=== PATIENT | female | born 1945 | race Caucasian/White ===

== ENCOUNTER → 2016-04-22 | Outpatient (CLI) | payer OTHER ==
[~2016-04-22] MED LIST: ALDACTONE25 MG PO; ALTACE10 M1 PO; ALTACE10 MG PO; AMLODIPINE BESYL5 MG; ASA81BEC PO; ASPIRIN325; ATENOLOL 25 MG25 M1 PO; CENTRUM SILVER1 EAC4 PO; COUMADIN 5 MG TA5 M1 PO; FISH OIL 1,001000 M1 PO; FISH OIL 1,001000 M2 PO; IRON325 PO; LANOXIN 0.250.25 M1; LIPITOR20 MG PO; LOVENOX SQ; PACERONE 200 M200 MG PO; PRADAXA150 MG PO; SAVAYSA60 MG PO; SIMVASTATIN40 MG PO; TIKOSYN.25; VENTOLIN HFA 1818 GM INH
--- NOTE | ~2016-04-22 | S ---
[facility] [place] [address] SURGICAL PATH RPT PROCEDURE Name: DAVID SHINE Room #: REG [facility].#: [id number] Admission: 04/22/16 Date of : 41 Discharge: Report #: [id number] Path Case #: [id number] PATHOLOGY REPORT COLLECTION DATE: 04/22/2016 RECEIVED DATE: 04/22/2016 SUBMITTING PHYS: Dr. Octavio Nunn OTHER PHYS: Dr. Nakia Lazaro SPECIMEN(S) RECEIVED: A.Bx small bowel B.Gastritis * * * * * * * * * * * * FINAL DIAGNOSIS: A. "Bx small bowel", biopsy: - Small bowel / duodenal mucosa with mild reactive changes; no evidence of celiac sprue. B. "Gastritis", biopsy: - Gastric mucosa with mild reactive changes and mild chronic inflammation. - Negative H. pylori immunohistochemical stain (block B1); control reacted appropriately. (CLW:all; d/t: 04/26/2016) PATHOLOGIST: Angelina Garcia M.D. REPORT ELECTRONICALLY SIGNED BY: Angelina Garcia M.D. DATE/TIME: 04/26/2016 21:33 * * * * * * * * * * * * GROSS PATHOLOGY: A. Received in formalin labeled "David Shine and bx small bowel," are 5 segments of pruitt soft tissue measuring 1.8 x 0.3 x 0.2 cm in aggregate dimensions and ranging from 0.3 to 0.6 cm in maximum dimension. The specimen is submitted entirely in cassette A1. B. Received in formalin labeled "David Shine and gastritis," are 4 segments of pruitt soft tissue measuring 1.0 x 0.2 x 0.2 cm in aggregate dimensions and ranging from 0.2 to 0.3 cm in maximum dimension. The specimen is submitted entirely in cassette B1. (TTL; 04/23/2016) CLINICAL HISTORY: History of anemia, rule out celiac disease [address] [address] SURGICAL PATH RPT PROCEDURE Name: DAVID SHINE Room #: REG [facility].#: [id number] Admission: 04/22/16 Date of : 41 Discharge: Report #: [id number] Path Case #: [id number] INITIAL CPT CODE(S): A; 95625 B; 98086, 72930 Professional services performed by [facility] [address], [place] [address] Technical services performed by [facility] at [address] [place] [address], [address] [address]. [facility] [address] [address] PHONE: [phone] DIRECTOR: Bethel Charles M.D. * * * END OF REPORT * * *
--- NOTE | ~2016-04-22 | P ---
[facility] [place] [address] PROCEDURE REPORT Name: DAVID SHINE Room #: REG [facility]#: [id number] Admission: 04/22/16 Attend Phys: Octavio Nunn MD Discharge: Date of : 43 Report #: [id number] THIS REPORT FOR: //name// CC: Jac Mckenzie MD [facility] Octavio Lazaro BRIEF HISTORY: The patient is a 70-year-old woman with history of anemia, requiring transfusion. She has not noted gross gastrointestinal bleeding. Her last colonoscopy was 6-1/2 years ago. PREOPERATIVE DIAGNOSIS: Anemia requiring transfusion. POSTOPERATIVE DIAGNOSIS: Moderate sigmoid diverticulosis coli. MEDICATIONS: Deep sedation with propofol per anesthesia. SPECIMEN: None. ESTIMATED BLOOD LOSS: None. PROCEDURE: Colonoscopy to cecum and terminal ileum. FINDINGS: Prior to propofol sedation, procedure of colonoscopy discussed with the patient as well as potential risks, benefits, and complications. She indicates she understands and desires to proceed. With the patient in left lateral decubitus position, digital examination was completed, which revealed no abnormalities. Subsequently, the Denator video colonoscope was introduced into the rectum and advanced under direct vision to the cecum. Done with minimal difficulty. The cecum was identified by the ileocecal valve and the appendiceal orifice. I was able to visualize the distal segment of terminal ileum, which was inspected and noted to be unremarkable. At that point, the scope was slowly withdrawn and careful circumferential views obtained including retroflexing the scope in the ascending colon. Upon slow withdrawal of the scope, the prep was noted to be good. The mucosa was within normal limits, normal vascular pattern, and normal light reflex. No inflammatory neoplastic lesions were seen, bleeding was not seen at anytime during examination. Etiology of her blood loss was not identified. As we withdrew the scope in particular sigmoid colon, there was noted to be moderately severe diverticular disease without endoscopic evidence of diverticulitis. Scope was withdrawn into the rectum. Upon retroflexion, no additional abnormalities were seen. Scope was withdrawn. The patient tolerated the procedure well. [facility] [address] [place] [address] PROCEDURE REPORT Name: DAVID SHINE GRAYSON [facility]: [facility] [id number] Admission: 04/22/16 Attend Phys: Octavio Nunn MD Discharge: Date of : 43 Report #: [id number] CONDITION OF THE PATIENT UPON DISCHARGE: Following procedure, the patient drowsy, aroused, and conversant. She will be discharged home when fully ambulatory. INSTRUCTIONS TO THE PATIENT AND FAMILY AT THE TIME OF DISCHARGE: No bleeding lesions or neoplastic lesions were seen. The etiology of her anemia requiring transfusion is not clearly identified on the colonoscopy or upper endoscopy that was done today. Please see endoscopy report for additional details. We will obtain an upper GI series as noted on the EGD report. Also, we will obtain an M2 capsule study for further evaluation of anemia. She does have heart disease and takes Savaysa. At this time, she should continue her Savaysa and follow up with Dr. Ruano and Dr. Mckenzie for monitoring her hemoglobin. For surveillance purposes, she should return in 10 years for a screening colonoscopy. <ELECTRONICALLY SIGNED> By: Octavio Nunn MD 04/22/16 1225 1047 1115 Octavio Nunn MD /nt
--- NOTE | ~2016-04-22 | P ---
[facility] [place] [address] PROCEDURE REPORT Name: DAVID SHINE Room #: REG [facility]#: [id number] Admission: 04/22/16 Attend Phys: Octavio Nunn MD Discharge: Date of : 43 Report #: [id number] THIS REPORT FOR: //name// CC: Jac Mckenzie MD [facility] Octavio Lazaro BRIEF HISTORY: The patient is a 70-year-old woman who was recently found to have anemia requiring blood transfusion. However, she has not observed any gross GI bleeding. She does take Savaysa for her coronary artery disease and atrial fibrillation. PREOPERATIVE DIAGNOSIS: Anemia, requiring transfusion. POSTOPERATIVE DIAGNOSES: 1. Erosive gastritis, body of the stomach, without evidence of bleeding. 2. Small hiatus hernia. 3. Questionable paraesophageal hernia. MEDICATIONS: Deep sedation with propofol per anesthesia. SPECIMENS: 1. Small bowel biopsies to rule out celiac disease. 2. Biopsies of gastritis. ESTIMATED BLOOD LOSS: 3 mL. PROCEDURE: EGD with biopsy. FINDINGS: Prior to propofol sedation, procedure of upper endoscopy discussed with the patient as well as potential risks, benefits and complications. She indicates she understands and desires to proceed. DESCRIPTION OF PROCEDURE: With the patient in the left lateral decubitus position, the Topmalli video endoscope was inserted in the cervical esophagus under direct vision, without difficulty. Examination of this organ through its entire length revealed normal esophageal mucosa down to the squamocolumnar junction. No ulcers or erosions were seen. No bleeding lesions were seen. A small 2- to 3-cm sliding-type hiatus hernia was seen. The scope was advanced. However, just distal to the hernia, the area never distended well. The mucosa appeared to be intact. I would wonder if she has a paraesophageal component to her hernia as well. The segment was about 4-5 cm in length. The scope was advanced into the distal stomach, which was fully insufflated with air. There was a diffuse gastritis. There was erythema in the antrum with a couple erosions. In the body of the stomach, there were several linear erosions, but active bleeding [facility] [address] [place] [address] PROCEDURE REPORT Name: DAVID SHINE Room #: REG [facility].#: [id number] Admission: 04/22/16 Attend Phys: Octavio Nunn MD Discharge: Date of : 43 Report #: [id number] was not seen. The pylorus, duodenal bulb and postbulbar sweep were inspected and noted to be within normal limits. Small bowel biopsies were obtained to evaluate for celiac disease in view of her anemia. At that point, the scope was withdrawn and careful circumferential views were obtained. The patient tolerated the procedure well. CONDITION OF THE PATIENT UPON DISCHARGE: Following the procedure, the patient drowsy and prepared for colonoscopy. INSTRUCTIONS TO THE PATIENT AND FAMILY AT THE TIME OF DISCHARGE: She does have gastritis. Obvious bleeding lesion is not seen. I am suspicious that she may have more of a hernia than recognized endoscopically. Therefore, we will obtain an upper GI series for further evaluation. We will follow up on biopsies at this time and proceed with full colonoscopy. <ELECTRONICALLY SIGNED> By: Octavio Nunn MD 04/22/16 1225 1016 1104 Octavio Nunn MD /nt
== END | disposition home or self-care (01) ==
LOC: GI 08:37
DX: K57.30 Diverticulosis of large intestine without perforation or abscess without bleeding (principal); K25.9 Gastric ulcer, unspecified as acute or chronic, without hemorrhage or perforation; K44.9 Diaphragmatic hernia without obstruction or gangrene; I25.10 Atherosclerotic heart disease of native coronary artery without angina pectoris; I48.91 Unspecified atrial fibrillation
CPT/HCPCS: 62110; 62900

== ENCOUNTER → 2016-04-29 | Outpatient (CLI) | payer OTHER | LOC: RAD 02:16 | DX: K44.9 Diaphragmatic hernia without obstruction or gangrene (principal); D64.9 Anemia, unspecified; K21.9 Gastro-esophageal reflux disease without esophagitis ==

== ENCOUNTER → 2016-07-22 | Outpatient (CLI) | payer OTHER ==
[~2016-07-22] MED LIST changes: +OMEPRAZOLE40 MG PO
== END | disposition home or self-care (01) ==
LOC: GI 06:38
DX: D50.9 Iron deficiency anemia, unspecified (principal); Q27.33 Arteriovenous malformation of digestive system vessel

== ENCOUNTER → 2016-08-19 | Outpatient (CLI) | payer OTHER ==
[~2016-08-19] VITALS: Ht 167.6 cm; Wt 77.1 kg
--- NOTE | ~2016-08-19 | P ---
[facility] [place] [address] PROCEDURE REPORT Name: DAVID SHINE Room #: REG [facility]#: [id number] Admission: 08/19/16 Attend Phys: Octavio Nunn MD Discharge: Date of : 43 Report #: [id number] THIS REPORT FOR: //name// CC: Octavio Ruano MD BRIEF HISTORY: The patient is a 70-year-old woman with history of iron-deficiency anemia. She had a recent small bowel capsule study, which revealed what was thought to be a nonbleeding AVM of the jejunum. It was felt that this was potentially within the reach of a push enteroscope and she presents today for small bowel endoscopy. PREOPERATIVE DIAGNOSIS: Iron-deficiency anemia. She has required blood transfusions. POSTOPERATIVE DIAGNOSES: 1. Three jejunal lesions consistent with small bowel vascular ectasias, nonbleeding, cauterized. 2. Retained solid material in stomach, consistent with gastroparesis. 3. Small hiatus hernia. MEDICATIONS: Deep sedation with propofol per anesthesia. SPECIMEN: None. ESTIMATED BLOOD LOSS: Less than 3 mL. PROCEDURE: Small bowel endoscopy with argon plasma coagulation of vascular ectasia of small bowel. FINDINGS: Prior to propofol sedation, procedure of small bowel endoscopy was discussed with the patient as well as potential risks and its complications. She indicates she understands and desires to proceed. DESCRIPTION OF PROCEDURE: With the patient in the left lateral decubitus position, Fuji video endoscope was inserted in the cervical esophagus under direct vision without difficulty. Examination of the esophagus through its entire length revealed normal esophageal mucosa down the squamocolumnar junction. Squamocolumnar junction was inspected and noted to be within normal limits. Intermittently, small hiatus hernia was seen. Scope was advanced in the stomach and immediately, she was found to have a buyjd-ry-yzlunews amount of retained solid material in the stomach, suggestive of gastroparesis. There was very little liquid in the stomach. We were careful about to fully insufflate the stomach due to the retained material. Examination of the antrum revealed normal mucosa. Pylorus normal. The scope was then advanced across the pylorus into the duodenum and down into the jejunum as far as we could advance the [facility] [address] [place] [address] PROCEDURE REPORT Name: DAVID SHINE Room #: REG [facility].#: [id number] Admission: 08/19/16 Attend Phys: Octavio Nunn MD Discharge: Date of : 41 Report #: [id number] scope. We obtained deep insertion of the scope into the jejunum. Occasional bit of solid material was seen. Upon advancement of the scope, vascular ectasias were not seen. However, upon withdrawal of the scope and very careful inspection of the mucosa, in the proximal jejunum, we found 3 lesions which were suggestive of nonbleeding vascular ectasias. These were destroyed with argon plasma coagulation. It is noted that as soon as we hit one of these with the APC, it immediately started oozing blood and then was hit a second time and stopped. There was good hemostasis at all 3 levels. The scope was further withdrawn. No additional abnormalities were seen. As we withdrew the scope back into the stomach, it had filled with air, which would pass up from the small bowel. The stomach was more distended. Upon examination within the limitations of prep, no additional lesions were seen. No bleeding lesions were seen within the stomach. Again, food debris was seen. We removed as much air as possible. Scope withdrawn. The patient tolerated the procedure well. CONDITION OF THE PATIENT UPON DISCHARGE: Following the procedure, the patient drowsy. She will be discharged home when fully ambulatory. INSTRUCTIONS TO THE PATIENT AND FAMILY AT THE TIME OF DISCHARGE: Three candid lesions for vascular ectasias were identified and treated with argon plasma coagulation today. The patient had been on iron which she held for the procedure. We will have her continue her iron at least at this point in time. We will obtain a followup CBC and ferritin. We will have her return for followup in the office in about 6-8 weeks to see either me or nurse practitioner with regards to her gastroparesis. She will otherwise return under the care of Dr. Fercho Schumacher. By: 0836 1113 Octavio Nunn MD /ab
== END | disposition home or self-care (01) ==
LOC: GI 06:53
DX: K55.20 Angiodysplasia of colon without hemorrhage (principal); K44.9 Diaphragmatic hernia without obstruction or gangrene; I10 Essential (primary) hypertension; I50.9 Heart failure, unspecified; I73.9 Peripheral vascular disease, unspecified; D64.9 Anemia, unspecified; I25.2 Old myocardial infarction; I48.91 Unspecified atrial fibrillation; K21.9 Gastro-esophageal reflux disease without esophagitis; Z86.73 Personal history of transient ischemic attack (TIA), and cerebral infarction without residual deficits; Z95.0 Presence of cardiac pacemaker; Z95.1 Presence of aortocoronary bypass graft; Z98.890 Other specified postprocedural states; Z87.891 Personal history of nicotine dependence
CPT/HCPCS: 62110

== ENCOUNTER 2017-01-07 20:45 | Inpatient (IN) | payer OTHER ==
[~2017-01-07] VITALS: Ht 165.1 cm; Wt 88.1 kg
--- NOTE | ~2017-01-07 | EKG ---
[place] [address] [facility] [employer] [place] [address] ELECTROCARDIOGRAM REPORT Name: DAVID SHINE Room #: 408-P ADM IN M.R.#: [id number] Admission: 01/07/17 Attend Phys: Paul Rowell DO Discharge: Date of : 41 Report #: [id number] THIS REPORT FOR: //name// [facility] Test Date: 2017-01-08 Test Time: 08:30:06 Pat Name: DAVID SHINE Department: Room: [facility] Gender: F Agent Ticketing Gate: ANTONIO : 1945 Requested By: Chance Johnson Order Number: [id number] MD: Harsha Moyer Measurements Intervals [place] Rate: 61 P: 0 HI: 72 QRS: 11 QRSD: 101 T: 50 QT: 420 QTc: 423 Interpretive Statements Atrial-paced complexes Nonspecific ST and T wave abnormality Compared to ECG 11/18/2013 16:19:52 T-wave abnormality now present Electronically Signed On 01-08-2017 12:37:06 CDT by Harsha Moyer [email or web address] <ELECTRONICALLY SIGNED> By: Harsha Moyer MD, [facility] 01/08/17 1237 9 9 Harsha Moyer MD, [facility] /EPI
--- NOTE | ~2017-01-07 | HC ---
[facility] [place] [address] CONSULTATION Name: DAVID SHINE Room #: 408-P ADM IN M.R.#: [id number] Admission: 01/07/17 Attend Phys: Paul Rowell DO Discharge: Date of : 41 Report #: [id number] THIS REPORT FOR: //name// CC: Paul Ruano DATE OF SERVICE: 01/10/2017 HISTORY OF PRESENT ILLNESS: The patient is a 71-year-old white female with a history of coronary artery disease, peripheral vascular disease, hypertension who had a mechanical fall [place] a bowling alley when she tripped over a bowling bag. She complained of right shoulder and right hip pain. She sustained a complex comminuted right hip fracture, intertrochanteric and underwent open reduction and internal fixation with an intramedullary device on 01/09/2017. She also was noted to have a comminuted right shoulder fracture dislocation and underwent evaluation under anesthesia on 01/09/2017. She is limited to partial weightbearing, 20 pounds, right lower extremity and no external rotation of right shoulder with the okay to weightbear on that right shoulder. She has been treated for acute renal failure versus chronic kidney disease. She is noted to have leukocytosis. She has anemia and is being transfused. She is being monitored regarding congestive heart failure and she has a significant cardiac disease history. We are seeing her in rehabilitation medicine consultation. PAST MEDICAL HISTORY: Sick sinus syndrome, paroxysmal atrial fibrillation, permanent pacemaker. She has had coronary artery bypass grafting with NJ and triple bypass 2006, history of multiple cardioversions for atrial fibrillation. She has had right superficial femoral artery stent x 2 in 2008 and left iliac stent x 2 in 2008. She has had subsequent left superficial femoral artery stenting 2009, 2013, 2014. The pacemaker was 10/15/2010. She had a skin graft, left ankle early April 2006. She had a prior left hip fracture with repair in 1988. History of a TIA in 08/10. She has CHF, NJ, hyperlipidemia, chronic kidney disease stage 3. MEDICATIONS: Please see the full medication listing. HABITS: Former smoker, quit greater than a year ago. No history of alcohol abuse. SOCIAL HISTORY: Lives in a house with her , sherrill. There are no stairs. She stays in a family room and a hospital bed is obtained. The bedroom otherwise is not on the main level. Her is retired. There is an involved daughter. REVIEW OF SYSTEMS: No current complaints of chest pain, shortness of breath or abdominal discomfort. She has some shoulder [place] [address] CONSULTATION Name: DAVID SHINE Room #: 408-P [facility] IN .R.#: [id number] Admission: 01/07/17 Attend Phys: Paul Rowell DO Discharge: Date of : 41 Report #: [id number] PHYSICAL EXAMINATION: GENERAL: A 71-year-old white female in no obvious distress. VITAL SIGNS: Last recorded temperature 100, pulse 73, respirations 18, blood pressure 173/70. GENERAL: The patient is alert. She is pleasant. HEENT: Appeared to be benign. NEUROLOGIC: Cranial nerves grossly intact. Facies are symmetric. EXTREMITIES: She has functional range of motion of the left upper and left lower extremity without obvious focal weakness. DTRs are trace to 1. Right shoulder; she holds the arm internally rotated. There is no swelling of the wrist or hand and she appears to have good strength of the wrist and hand. I did not do any range of motion at all of that right shoulder or the elbow. As far as the right lower extremity, she has good dorsiflexion of that right ankle. There is no focal calf swelling. Her right hip is dressed. She has SCDs in place. ASSESSMENT: A 71-year-old white female with the following problem list: 1. Complex comminuted right hip fracture status post ORIF with intramedullary device; 20 pounds weightbearing. 2. Comminuted right shoulder fracture dislocation, status post examination under anesthesia, 01/09/2017. No external rotation greater than 45 degrees, allowed weightbearing as tolerated. 3. Acute renal failure versus chronic kidney disease, stage 4. 4. Leukocytosis. 5. History of congestive heart failure. 6. Anemia, postoperative transfusion. 7. Atrial fibrillation with permanent pacemaker, multiple cardioversions, Cardiology involved. 8. Peripheral vascular disease with multiple legs stents anticoagulation was held secondary to the orthopedic injuries. 9. Hypertension. 10. Coronary artery disease with NJ and coronary artery bypass graft. PLAN: Therapy evaluations are underway. We will be glad to assist regarding rehab therapy issues as the patient further medically stabilizes. By: 0929 0722 Alejandro Bhat MD /GLADYS
--- NOTE | ~2017-01-07 | HC ---
[facility] [place] [address] CONSULTATION Name: DAVID SHINE Room #: 408-P ADM IN M.R.#: [id number] Admission: 01/07/17 Attend Phys: Paul Rowell DO Discharge: Date of : 41 Report #: [id number] THIS REPORT FOR: //name// CC: Paul Ruano REASON FOR CONSULTATION: Preoperative evaluation. HISTORY OF PRESENT ILLNESS: The patient is a nice woman with a complicated history including prior bypass in 2006. She has a history of paroxysmal atrial fibrillation and sick sinus syndrome with prior pacemaker implantation. Due to her elevated CHADS-VASc score, she has been maintained on Savaysa, her last dose yesterday morning. She had a nonsyncopal fall last evening at which time she sustained a right shoulder fracture and dislocation as well as a high comminuted right femoral neck and intertrochanteric fracture. Plans are on the way for a surgical correction. She denies chest pain or pressure. She denies heart failure symptoms. She reports that she had a nonischemic stress study through our office about 2 weeks ago. CURRENT MEDICATIONS: Include atorvastatin 20 mg daily, spironolactone 25 mg daily, ramipril 10 mg daily, amlodipine 5 mg daily, amiodarone 200 mg daily, edoxaban 60 mg daily, iron, and omeprazole. PAST MEDICAL HISTORY: Medical records have been reviewed and include a history of left hip surgery in 1988, three-vessel bypass in 2006, multiple peripheral stents, prior TIA and dyslipidemia. SOCIAL HISTORY: He is a former smoker, nondrinker. . FAMILY HISTORY: Negative for premature coronary disease. Father developed coronary disease in his late 60s. REVIEW OF SYSTEMS: All systems negative except as that noted above. PHYSICAL EXAMINATION: GENERAL: This is a pleasant woman, in no distress. VITAL SIGNS: Blood pressure is 132/60, heart rate is 74 and regular, temperature is 98.3 degrees, 5 feet 5 inches tall, and 170 pounds. HEENT: There are neither xanthelasma, subcutaneous xanthomata, oral mucosal, digital cyanosis or kyphoscoliosis present. CHEST: Clear to auscultation and percussion. CARDIOVASCULAR: Regular rate and rhythm with normal S1 and S2. ABDOMEN: Soft and nontender. EXTREMITIES: Without cyanosis, clubbing or edema. The right leg is retracted and externally rotated. NEUROLOGIC: She is alert with a nonfocal exam. [address] [address] CONSULTATION Name: DAVID SHINE Room #: 408-P [facility] IN ..#: [id number] Admission: 01/07/17 Attend Phys: Paul Rowell DO Discharge: Date of : 41 Report #: [id number] LABORATORY DATA: EKG; atrial pacing with nonspecific ST and T-wave abnormality. Sodium 139, potassium 4.5, and creatinine 1.2. White count 11.1, hemoglobin 10, hematocrit 29, and platelet count 254. Chest x-ray is normal. IMPRESSION: 1. Coronary artery disease, clinically stable with recent nonischemic stress study. 2. Right shoulder dislocation, right femoral neck and intertrochanteric hip fracture. 3. Sick sinus syndrome and paroxysmal atrial fibrillation with prior pacemaker. 4. Hypertension. 5. Dyslipidemia. 6. Peripheral vascular disease. 7. Hypercoagulable. RECOMMENDATIONS: 1. Discontinue Savaysa. I would recommend at least a 36 hours off prior to elective surgery, ideally 48 hours. 2. Continued use of usual cardiovascular medicines. I believe she represents a stable cardiovascular risk for a planned and needed orthopedic surgery. Thank you for asking me to participate in her care. I have discussed these issues with the patient and her family. <ELECTRONICALLY SIGNED> By: Harsha Moyer MD, [facility] 01/09/17 1050 1136 0058 Harsha Moyer MD, [facility] /nt
--- NOTE | ~2017-01-07 | O ---
[address] [address] OPERATIVE REPORT Name: DAVID SHINE Room #: 408-P ADM IN M.R.#: [id number] Admission: 01/07/17 Attend Phys: Paul Rowell DO Discharge: Date of : 41 Report #: [id number] THIS REPORT FOR: //name// CC: Paul Ruano DATE OF SERVICE: 01/09/2017 DATE OF SERVICE: 01/09/2017 SERVICE: Orthopedics. FACILITY: [facility] SURGEON: Chance Johnson MD POCKET MARKER: None. PREOPERATIVE DIAGNOSES: 1. Status post fall. 2. Complex highly comminuted right intertrochanteric hip fracture extending into the base of the femoral neck. 3. Comminuted right shoulder fracture dislocation. POSTOPERATIVE DIAGNOSES: 1. Status post fall. 2. Complex highly comminuted right intertrochanteric hip fracture extending into the base of the femoral neck. 3. Comminuted right shoulder fracture dislocation. PROCEDURE: 1. Open reduction and internal fixation of right intertrochanteric hip fracture with intramedullary nail device. 2. Examination under anesthesia of right shoulder. ANESTHESIA: General. COMPLICATIONS: None. DRAINS: None. SPECIMENS: None. ESTIMATED BLOOD LOSS: 150 mL. FINDINGS: [address] [address] OPERATIVE REPORT Name: DAVID SHINE Room #: 408-P [facility] IN ..#: [id number] Admission: 01/07/17 Attend Phys: Paul Rwoell DO Discharge: Date of : 43 Report #: [id number] 1. Yoder and Nephew 11.5 mm x 40 cm InterTan intertrochanteric femoral nail with a 95 mm compression screw and a 47.5 mm distal interlock screw. 2. Shoulder examination shows stable through forward flexion arc as well as external rotation until 60 degrees. She will have external rotation limitation set at 45 degrees in the initial recovery period of 6 weeks. HISTORY AND INDICATIONS: The patient is a 71-year-old female who [place] 2 nights ago, she sustained a complex comminuted right hip fracture, which reveal on CT scan to be more complicated than the typical intertrochanteric hip fracture because it had a displaced cortical segment traversing the intertrochanteric region and exiting the lateral cortex laterally and anteriorly with some displacement. This was essentially a 3-part fracture of the femoral neck, the trochanteric segment and then the shaft. I performed additional preoperative planning utilizing the CT scan and consulting with partners to ensure that optimal fixation technique could be achieved. The goal here is early range of motion and weightbearing, and stable fixation to avoid cutout of the implant. In addition, she had a fracture dislocation of the shoulder that underwent closed reduction 2 nights ago. There was question if the patient sustained a massive rotator cuff tear with the injury; however, she has a pacemaker, so we cannot obtain an MRI. Therefore, plans were made for an examination under anesthesia of the right shoulder as well. Risks, benefits, alternatives and indications for surgery were discussed with her and her family in detail preoperatively. Risks include but not limited to pain, bleeding, infection, injury to nerves or blood vessels, persistent pain despite surgical intervention, failure of any repairs, reconstructions, need for further surgery including revision as well as hardware removal as well as complications related to anesthesia such as stroke, heart attack, pulmonary complications, thromboembolic disease and . Despite these risks, she wished to proceed. DESCRIPTION OF PROCEDURE: The right lower extremity and right upper extremity were correctly identified in the preoperative holding area as the operative extremities. The patient was taken to the operating room where general anesthesia was induced without complication. She was padded appropriately, placed in traction boots, prophylactic antibiotics were administered at appropriate time. Time-out procedure was performed. An examination of the right shoulder was performed. The shoulder was stable with the arm at the side and with abduction of 0 degrees. External rotation was stable until the 60-degree point when further external rotation caused it to lever slightly out the front. We will set her at an external rotation limit of 45 degrees during her healing time so that she does not risk redislocation. Forward flexion was stable to the arm to her ear, which is approximately 150 to 160 degrees of forward flexion and then abduction to straight 90 with the scapula stabilized was stable as well with external rotation maintained at 0 degrees. The shoulder was ensured that it was stably reduced and it was placed on the side. She was again padded appropriately and then the leg was assessed and treated. [address] [address] OPERATIVE REPORT Name: DAVID SHINE Room #: 408-P [facility] IN M.R.#: [id number] Admission: 01/07/17 Attend Phys: Paul Rowell DO Discharge: Date of : 43 Report #: [id number] Under fluoroscopy on multiple planes, the fracture was reduced. It required external rotation and traction followed by internal rotation and then letting down some of the traction. It is, again, a complicated fracture and so I left the fracture distracted slightly on traction with the goal of providing initial fixation and then letting the traction down to provide a stable fixation. The right lower extremity was then prepped and draped in a standard sterile fashion. Time-out procedure was confirmed. A 2 inch incision was made proximal to the greater trochanter and then dissection was taken down bluntly to the trochanter. A guidepin was placed on the tip of the trochanter and then was advanced on multiple planes in the appropriate positions within the proximal femur. The trochanteric segment exited primarily anteriorly and laterally with 50% or so of the cortex still maintained posteriorly. So, there was additional planning at the initiation of the procedure as to whether or not a cerclage cable would be appropriate and, if so, if it should be applied prior to or after passage of the nail. I selected after passage of the nail because I did not want to crush the already highly comminuted and relatively poor bone quality metaphyseal bone and felt that the trajectory from the posterior medial as well as the posterolateral cortices provided appropriate access for alignment of the shaft relative to the neck. The subsequent step would then reduce the distal lateral cortex of the trochanteric segment to this stable construct after rigid IM nail was present. Therefore, the entry reamer was utilized to obtain access to the femoral canal. A guidepin was passed and then a 40 cm nail was selected and we confirmed that the guidepin did not exit the cortex laterally, but it was snug against the medial cortex and then, after the canal had been sequentially reamed, the nail was advanced in a diligent cautious fashion so that the cortex was not violated distally. We used C-arm in multiple planes to confirm that was in fact the case, that it was contained without critical violation. The fracture was left on distraction until the nail was advanced to appropriate position and then some traction was let down allowing the trochanteric segment and the shaft to settle in with better contact and just maintain the fracture in acceptable alignment. The cephalomedullary screws were then placed with a goal of 10 mm of compression. After the primary screw was placed into the femoral head in a subchondral location confirmed on multiple planes to be beneath the articular surface, but have an optimized tip apex distance for maximal stability, the second screw was placed and initial compression was achieved and then the compression was backed out. At this point, I felt that a cerclage around the trochanteric segment was most beneficial and so the second incision was extended proximally and a clamp was directly placed around the trochanteric segment providing direct open reduction. Then the cable guide was placed around the proximal femur under fluoroscopy to guide it and then the cable was then passed through the guide and compression was achieved under both direct inspection as well as fluoroscopic visualization. When secure compression was achieved with appropriate position both on the lateral and AP, the cable was secured at this point and then the final compression was performed across the cephalomedullary screws. Final [facility] [address] [place] [address] OPERATIVE REPORT Name: DAVID SHINE Room #: [facility]-P [facility] IN M.R.#: [id number] Admission: 01/07/17 Attend Phys: Paul Rowell DO Discharge: Date of : 43 Report #: [id number] x-rays were taken in this location prior to removal of the external jig and then the distal interlocking screw was placed using a perfect cabazon technique with a 5.0 x 47.5 mm distal interlock screw. Final x-rays were then taken throughout confirming appropriate position and stable fixation and good alignment. Note that additional effort was required for this particular fracture because of the complexity requiring preoperative planning as well as the additional open reduction that was required with the cerclage cable. In addition, an extended incision was required because of the increased amount of adiposity present on the lateral and posterolateral aspect of the hip, which necessitated additional retracting in order to visualize and access the bone and provide stable fixation without doing so at the cost of periosteal stripping. The wounds were then all copiously irrigated and the deep fascial layer was closed with 0 Vicryl suture in [id number] fashion. The fat layer was closed with 0 Vicryl suture and the skin was closed with 2-0 Vicryl followed by skin jany. Sterile dressing was applied. The patient was awakened from anesthesia and taken to the recovery room in stable condition. There were no complications and all counts were recorded as correct. <ELECTRONICALLY SIGNED> By: Chance Johnson MD 01/09/17 1512 1213 1339 Chance Jonhson MD /nt
[2017-01-07 20:46] VITALS: BP 183/76
[2017-01-07 21:27] LABS: HEMATOCRIT 35.8 % (37.0-47.0); HEMOGLOBIN 12.2 gm/dL (12.0-15.0); MCH 30.2 pg (26.0-34.0); MCHC 34.1 g/dL (28.0-37.0); MCV 88.4 fL (80.0-100.0); RBC 4.06 mil/uL (4.20-5.00); RDW 15.1 % (10.5-14.5); WBC 14.2 thou/uL (4.0-11.0)
[2017-01-07 21:37] LABS: CALCIUM 9.3 mg/dL (8.5-10.1); CREATININE 1.3 mg/dL (0.6-1.0); POTASSIUM 4.3 mmol/L (3.5-5.1)
[2017-01-07 21:42] LABS: ALBUMIN 3.7 g/dL (3.4-5.0); TOTAL BILIRUBIN 0.2 mg/dL (<0.1-1.0); TOTAL PROTEIN 6.7 g/dL (6.4-8.2)
[2017-01-07 21:45] LABS: APTT 24.8 Seconds (24.5-32.8); INR 1.2
[2017-01-08 01:10] VITALS: BP 158/76
[2017-01-08 01:25] VITALS: BP 143/71
[2017-01-08] MEDS ORDERED: IRON325 PO (02:01)
[2017-01-08 06:15] VITALS: BP 136/59
[2017-01-08 08:00] VITALS: BP 132/62
[2017-01-08 08:53] LABS: HEMATOCRIT 29.9 % (37.0-47.0); MCH 29.9 pg (26.0-34.0); MCHC 33.9 g/dL (28.0-37.0); MCV 88.3 fL (80.0-100.0); RBC 3.39 mil/uL (4.20-5.00); WBC 11.1 thou/uL (4.0-11.0)
[2017-01-08 08:57] LABS: HEMOGLOBIN 10.1 gm/dL (12.0-15.0)
[2017-01-08 09:06] LABS: CALCIUM 8.8 mg/dL (8.5-10.1); CREATININE 1.2 mg/dL (0.6-1.0); POTASSIUM 4.5 mmol/L (3.5-5.1)
[2017-01-08 16:00] VITALS: BP 147/59
[2017-01-08 19:42] VITALS: BP 169/73
[2017-01-09] VITALS (7 sets, daily range): BP systolic 120–162; BP diastolic 65–77
[2017-01-09 04:35] LABS: ABSOLUTE NEUTROPHILS 8.9 thou/uL (1.4-8.2); BASOPHILS 0.3 % (0.0-2.0); EOSINOPHILS 0.2 % (0.0-3.0); HEMATOCRIT 26.7 % (37.0-47.0); HEMOGLOBIN 9.1 gm/dL (12.0-15.0); LYMPHOCYTES 10.9 % (24.0-44.0); MCH 29.6 pg (26.0-34.0); MCHC 33.9 g/dL (28.0-37.0); MCV 87.4 fL (80.0-100.0); MONOCYTES 10.8 % (1.0-8.0); PLATELET COUNT 213 thou/uL (150-400); POLYS 77.8 % (36.0-66.0); RBC 3.06 mil/uL (4.20-5.00); RDW 15.4 % (10.5-14.5); WBC 11.5 thou/uL (4.0-11.0)
[2017-01-09 04:37] LABS: MANUAL DIFF NO
[2017-01-09 04:46] LABS: CALCIUM 8.9 mg/dL (8.5-10.1); CREATININE 0.8 mg/dL (0.6-1.0); POTASSIUM 3.9 mmol/L (3.5-5.1)
[2017-01-10 04:17] VITALS: BP 173/70
[2017-01-10 06:26] LABS: MCH 30.7 pg (26.0-34.0); MCHC 34.9 g/dL (28.0-37.0); MCV 87.8 fL (80.0-100.0); RBC 2.18 mil/uL (4.20-5.00); RDW 15.5 % (10.5-14.5); WBC 7.9 thou/uL (4.0-11.0)
[2017-01-10 06:41] LABS: CALCIUM 8.1 mg/dL (8.5-10.1); CREATININE 0.9 mg/dL (0.6-1.0); POTASSIUM 3.6 mmol/L (3.5-5.1)
[2017-01-10 06:45] LABS: HEMATOCRIT 19.2 % (37.0-47.0); HEMOGLOBIN 6.7 gm/dL (12.0-15.0)
[2017-01-10 08:00] VITALS: BP 146/55
[2017-01-10 10:52] VITALS: BP 142/64; BP 143/53
[2017-01-10 13:30] VITALS: BP 137/60; BP 138/57; BP 141/55
[2017-01-10 15:07] LABS: HIV ANTIBODY Non Reactive (Non Reactive)
[2017-01-10 20:04] VITALS: BP 129/56
[2017-01-10 23:11] LABS: HBsAG-EMPLOYEE EXPOSURE Negative (Negative); HCV AB-EMPLOYEE EXPOSURE <0.1 (0.0-0.9)
[2017-01-11 04:10] VITALS: BP 124/56
[2017-01-11 09:05] VITALS: BP 125/60
[2017-01-11 10:54] LABS: HEMOGLOBIN 9.3 gm/dL (12.0-15.0); MCH 28.2 pg (26.0-34.0); MCHC 33.4 g/dL (28.0-37.0); MCV 84.6 fL (80.0-100.0); RBC 3.31 mil/uL (4.20-5.00); RDW 17.6 % (10.5-14.5); WBC 9.7 thou/uL (4.0-11.0)
[2017-01-11 16:00] VITALS: BP 135/66
[2017-01-11 20:59] VITALS: BP 119/49
[2017-01-12 01:59] VITALS: BP 123/56
[2017-01-12 04:35] VITALS: BP 122/51
[2017-01-12 06:14] LABS: HEMOGLOBIN 8.8 gm/dL (12.0-15.0); MCH 28.7 pg (26.0-34.0); MCHC 33.6 g/dL (28.0-37.0); MCV 85.4 fL (80.0-100.0); PLATELET COUNT 202 thou/uL (150-400); RBC 3.05 mil/uL (4.20-5.00); RDW 17.4 % (10.5-14.5); WBC 8.9 thou/uL (4.0-11.0)
[2017-01-12 06:18] LABS: MANUAL DIFF YES
[2017-01-12 06:30] LABS: CALCIUM 8.5 mg/dL (8.5-10.1); CREATININE 0.6 mg/dL (0.6-1.0); POTASSIUM 3.8 mmol/L (3.5-5.1)
[2017-01-12 07:35] VITALS: BP 118/54
[2017-01-12] MEDS ORDERED: CYCLOBENZAPRINE5 MG PO (08:22)
[2017-01-12] MEDS ORDERED: OXYCODONE-APAP1 EAC6 PO (08:22)
[2017-01-12 08:51] LABS: ABSOLUTE NEUTROPHILS 6.2 thou/uL (1.4-8.2); ANISOCYTOSIS 1+; METAMYELOCYTES 2 %; NUCLEATED RBCS 1 /100WBC; TOTAL CELL COUNT 100
== END 2017-01-12 16:19 | DRG 480 ==
LOC: ER 20:45 → 4N 23:11 → EROBS 23:11 → 4N 01-08 01:09
PROVIDERS: Emergency Medicine; Family Medicine; Nurse Practitioner Adult Health; Nurse Practitioner Family; Orthopaedic Surgery Sports Medicine
PROC: 0PSC34Z Reposition Right Humeral Head with Internal Fixation Device, Percutaneous Approach (ICD-10-PCS; principal; 2017-01-07)
PROC: 0QS606Z Reposition Right Upper Femur with Intramedullary Internal Fixation Device, Open Approach (ICD-10-PCS; 2017-01-09)
PROC: 30233N1 Transfusion of Nonautologous Red Blood Cells into Peripheral Vein, Percutaneous Approach (ICD-10-PCS; 2017-01-10)
DX: S72.141A Displaced intertrochanteric fracture of right femur, initial encounter for closed fracture (principal); N17.1 Acute kidney failure with acute cortical necrosis; D68.59 Other primary thrombophilia; I13.0 Hypertensive heart and chronic kidney disease with heart failure and stage 1 through stage 4 chronic kidney disease, or unspecified chronic kidney disease; S43.004A Unspecified dislocation of right shoulder joint, initial encounter; I73.9 Peripheral vascular disease, unspecified; K21.9 Gastro-esophageal reflux disease without esophagitis; I50.9 Heart failure, unspecified; D64.9 Anemia, unspecified; I25.10 Atherosclerotic heart disease of native coronary artery without angina pectoris; N18.3 Chronic kidney disease, stage 3 (moderate); D72.829 Elevated white blood cell count, unspecified; E78.5 Hyperlipidemia, unspecified; I48.0 Paroxysmal atrial fibrillation; I49.5 Sick sinus syndrome; I25.2 Old myocardial infarction; Z79.899 Other long term (current) drug therapy; Z86.73 Personal history of transient ischemic attack (TIA), and cerebral infarction without residual deficits; Z95.1 Presence of aortocoronary bypass graft; Z95.0 Presence of cardiac pacemaker; Z95.5 Presence of coronary angioplasty implant and graft; Z88.1 Allergy status to other antibiotic agents; Z88.8 Allergy status to other drugs, medicaments and biological substances; Z87.891 Personal history of nicotine dependence; Z82.49 Family history of ischemic heart disease and other diseases of the circulatory system; W01.0XXA Fall on same level from slipping, tripping and stumbling without subsequent striking against object, initial encounter; Y93.89 Activity, other specified; Y92.89 Other specified places as the place of occurrence of the external cause; Y99.8 Other external cause status
CPT/HCPCS: 10790; 50101; 50386; 51412; 51538; 55445; 56524; 56525; 56526; 57092; 62110; 62900; 70005

== ENCOUNTER 2017-08-17 06:57 | Observation (INO) | payer OTHER ==
[~2017-08-17] VITALS: Ht 165.1 cm; Wt 70.3 kg
--- NOTE | ~2017-08-17 | EKG ---
[address] [place] [address] ELECTROCARDIOGRAM REPORT Name: DAVID SHINE I Room #: [facility]#: [id number] Admission: 08/17/17 Attend Phys: Jac Mckenzie MD, Discharge: Date of : 43 Report #: [id number] THIS REPORT FOR: //name// [facility] Test Date: 2017-08-17 Test Time: 07:16:44 Pat Name: DAVID SHINE Department: Room: Gender: F Senior Sql Server Developer: Chrissy HERRING : 1945 Requested By: Jac Mckenzie Order Number: [id number] MD: Harsha Moyer Measurements Intervals [place] Rate: 84 P: 127 ND: 140 QRS: 13 QRSD: 97 T: 88 QT: 386 QTc: 457 Interpretive Statements Sinus rhythm Nonspecific ST and T wave abnormality Compared to ECG 01/08/2017 08:30:06 Atrial-paced complex(es) or rhythm no longer present Electronically Signed On 08-17-2017 8:02:55 CDT by Harsha Moyer [email or web address] <ELECTRONICALLY SIGNED> By: Harsha Moyer MD, [facility] 08/17/17801 5 5 Harsha Moyer MD, [facility] /EPI
--- NOTE | ~2017-08-17 | CATHLAB ---
[facility] [address] [place] [address] INVASIVE PROCEDURE REPORT Name: DAVID SHINE I Room #: 200-I [facility] IN [facility]#: [id number] Admission: 08/17/17 Attend Phys: Jac Mckenzie, Discharge: Date of : 41 Date of Service: 08/17/17 1838 Report #: [id number] THIS REPORT FOR: //name// APPROVED REPORT Study performed: 08/17/2017 06:58:03 Patient Details Patient Status: Out-Patient Room #: The patient is a 71 year-old female Event Personnel Jac Mckenzie Principal Engineer, Melissa Barry, Fani Rowley David Monitor, Belinda Moffett RN oncology consultant Performed Art Access - L femoral artery* REYNA Place w/wo Plasty Single Left Main [id number] Indication Chest pain Procedure Narrative The LEFT Groin^ was infiltrated with 1% Lidocaine subcutaneous anesthesia. A PINNACLE 6FR Sheath #[id number] sheath was inserted into the LFA^. Coronary angiography was performed using coronary diagnostic catheters. The left coronary system was accessed and visualized with a LAUNCHER 6FR EBU 3.5 #[id number] catheter. Intraoperative Conscious Sedation Sedation start time: 08:05 Case end Time: 08:25 Fentanyl 50 mcg Versed 2 mg Fluoro Time: 3.42 minutes Dose: 389 mGy Contrast Type and Amount: Visipaque 50 ml Hemodynamics The aortic pressure is 137/62 mmHg with a mean of 70 mmHg. PCI Technique Lesion Percutaneous coronary intervention was performed on the . A LAUNCHER 6FR EBU 3.5 #[id number] Guide Catheter was used to engage the [facility] [address] [place] [address] INVASIVE PROCEDURE REPORT Name: DAVID SHINE I Room #: 200-I [facility] IN [facility]#: [id number] Admission: 08/17/17 Attend Phys: Jac Mckenzie, Discharge: Date of : 43 Date of Service: 08/17/17 1838 Report #: [id number] LCA ostium. A Luge Wire .014 x 182CM #[id number] Interventional Guidewire was used to cross the lesion. BALLOON DILATION A Balloon catheter Sprinter OTW 2.5 x 12 #[id number] was inserted and inflated up to 12.00atm for 12seconds. STENT DEPLOYMENT A drug-eluting stent RESOLUTE OTW 3.0 X 12 #[id number] was inserted and inflated up to 14.00atm for 27seconds. Additional Inflation: 15.00atm for 10seconds. Additional Inflation: 18.00atm for 21seconds. Conclusion #1 successful PTCA stent of the distal left main 90% to 0% with placement of a 3.0 by 12 resolute drug-eluting stent into the ostial proximal circumflex. (LAD protected via SNELL graft) Brisk and markedly increased filling of nondominant moderate size circumflex system <ELECTRONICALLY SIGNED> By: Jac Mckenzie MD, [facility] 08/17/171837 37 37 Jac Mckenzie MD, FAC /INF
--- NOTE | ~2017-08-17 | EKG ---
[address] [address] ELECTROCARDIOGRAM REPORT Name: DAVID SHINE I Room #: 200-I [facility].R.#: [id number] Admission: 08/17/17 Attend Phys: Jac Mckenzie MD, Discharge: Date of : 43 Report #: [id number] THIS REPORT FOR: //name// [facility] Test Date: 2017-08-17 Test Time: 11:33:44 Pat Name: DAVID SHINE Department: Room: 200 I Gender: F Automotive Tire Worker: Chrissy HERRING : 1945 Requested By: Jac Mckenzie Order Number: [id number] MD: Feng Galan Measurements Intervals [place] Rate: 69 P: DC: 161 QRS: 20 QRSD: 98 T: 28 QT: 480 QTc: 515 Interpretive Statements Atrial-paced rhythm Compared to ECG 08/17/2017 07:16:44 Sinus rhythm no longer present ST (T wave) deviation no longer present Electronically Signed On 08-17-2017 17:04:28 CDT by Feng Galan [email or web address] <ELECTRONICALLY SIGNED> By: Feng Galan MD 08/17/17 1704 1133 1133 Feng Galan MD /EPI
--- NOTE | ~2017-08-17 | EKG ---
[address] [address] ELECTROCARDIOGRAM REPORT Name: DAVID SHINE I Room #: 200-I [facility] M.R.#: [id number] Admission: 08/17/17 Attend Phys: Jac Mckenzie MD, Discharge: Date of : 43 Report #: [id number] THIS REPORT FOR: //name// [facility] Test Date: 2017-08-18 Test Time: 05:44:40 Pat Name: DAVID SHINE Department: Room: 200 I Gender: F Roofer Helper: NELLY : 1945 Requested By: Jac Mckenzie Order Number: [id number] MD: Feng Galan Measurements Intervals [place] Rate: 64 P: ME: 167 QRS: 26 QRSD: 99 T: -12 QT: 491 QTc: 507 Interpretive Statements Atrial-paced complexes Borderline repolarization abnormality Prolonged QT interval Baseline wander in lead(s) II,III,aVF Compared to ECG 08/17/2017 11:33:44 Prolonged QT interval now present Ventricular-paced complex(es) or rhythm no longer present Electronically Signed On 08-18-2017 8:23:32 CDT by Feng Galan [email or web address] <ELECTRONICALLY SIGNED> By: Feng Galan MD 08/18/17 0823 0544 0544 Feng Galan MD /EPI
[~2017-08-17 06:57] MED LIST changes: +CYCLOBENZAPRINE5 MG PO; +OXYCODONE-APAP1 EAC6 PO
[2017-08-17 07:21] LABS: HEMATOCRIT 38.6 % (37.0-47.0); HEMOGLOBIN 12.8 gm/dL (12.0-15.0); MCH 30.7 pg (26.0-34.0); MCHC 33.1 g/dL (28.0-37.0); MCV 92.7 fL (80.0-100.0); RBC 4.16 mil/uL (4.20-5.00); RDW 13.2 % (10.5-14.5); WBC 9.3 thou/uL (4.0-11.0)
[2017-08-17] MEDS ORDERED: LASIX 40 MG TAB40 M2 PO (07:25)
[2017-08-17] MEDS ORDERED: POTASSIUM20 PO (07:26)
[2017-08-17 07:29] LABS: CALCIUM 9.8 mg/dL (8.5-10.1); CREATININE 1.2 mg/dL (0.6-1.0); POTASSIUM 3.6 mmol/L (3.5-5.1)
[2017-08-17 07:34] LABS: APTT 27.3 Seconds (24.5-32.8); INR 1.1
[2017-08-17 19:50] VITALS: BP 142/70
[2017-08-17 22:40] VITALS: BP 137/62
[2017-08-18 04:00] VITALS: BP 138/78
[2017-08-18 05:29] LABS: ANION GAP 10 mmol/L (7-16); BUN 13 mg/dL (7-18); CALCIUM 9.7 mg/dL (8.5-10.1); CHLORIDE 109 mmol/L (98-107); CO2 23 mmol/L (21-32); CREATININE 0.8 mg/dL (0.6-1.0); GLUCOSE 101 mg/dL (74-106); POTASSIUM 3.6 mmol/L (3.5-5.1); SODIUM 142 mmol/L (136-145); TROPONIN-I < 0.04 ng/mL (<0.06)
[2017-08-18 05:50] LABS: HEMATOCRIT 33.3 % (37.0-47.0); HEMOGLOBIN 11.2 gm/dL (12.0-15.0); MCH 31.1 pg (26.0-34.0); MCHC 33.7 g/dL (28.0-37.0); MCV 92.2 fL (80.0-100.0); RBC 3.61 mil/uL (4.20-5.00); RDW 12.9 % (10.5-14.5); WBC 10.8 thou/uL (4.0-11.0)
[2017-08-18 07:43] VITALS: BP 135/63
[2017-08-18] MEDS ORDERED: BRILINTA90 MG PO (07:53)
[2017-08-18 10:16] VITALS: BP 135/63
[2017-08-18 10:25] VITALS: BP 135/63
== END 2017-08-18 12:05 | disposition home or self-care (01) ==
LOC: CATH 06:57 → 2N 10:33 → CATH 13:24 → 2N 08-18 12:05
PROVIDERS: Internal Medicine Cardiovascular Disease
DX: I25.10 Atherosclerotic heart disease of native coronary artery without angina pectoris (principal); I48.0 Paroxysmal atrial fibrillation; I49.5 Sick sinus syndrome; I10 Essential (primary) hypertension; E78.00 Pure hypercholesterolemia, unspecified; I73.9 Peripheral vascular disease, unspecified

== ENCOUNTER → 2019-01-03 | Outpatient (CLI) | payer OTHER ==
[~2019-01-03] MED LIST changes: +BRILINTA90 MG PO; +LASIX 40 MG TAB40 M2 PO; +POTASSIUM20 PO
== END ==
LOC: NUC 07:33
DX: E21.3 Hyperparathyroidism, unspecified (principal)

== ENCOUNTER → 2019-09-06 | Outpatient (CLI) | payer OTHER | LOC: SJCVCIMAG 07:45 | DX: M79.604 Pain in right leg (principal); M79.605 Pain in left leg; M79.89 Other specified soft tissue disorders; I87.2 Venous insufficiency (chronic) (peripheral); Z87.891 Personal history of nicotine dependence ==

== ENCOUNTER → 2019-09-06 | Outpatient (CLI) | payer OTHER | LOC: HYPER 09:53 | DX: R21 Rash and other nonspecific skin eruption (principal); L29.9 Pruritus, unspecified; R60.0 Localized edema; G45.8 Other transient cerebral ischemic attacks and related syndromes; E78.00 Pure hypercholesterolemia, unspecified; E66.01 Morbid (severe) obesity due to excess calories; I73.9 Peripheral vascular disease, unspecified; I87.2 Venous insufficiency (chronic) (peripheral); I48.0 Paroxysmal atrial fibrillation; Z68.32 Body mass index [BMI] 32.0-32.9, adult; Z87.891 Personal history of nicotine dependence; Z86.73 Personal history of transient ischemic attack (TIA), and cerebral infarction without residual deficits; Z95.1 Presence of aortocoronary bypass graft; Z95.0 Presence of cardiac pacemaker ==

== ENCOUNTER → 2019-09-24 | Outpatient (CLI) | payer OTHER | LOC: HYPER 10:54 | PROVIDERS: ATTEND Emergency Medicine | DX: R21 Rash and other nonspecific skin eruption (principal); L29.9 Pruritus, unspecified; R60.0 Localized edema; E66.01 Morbid (severe) obesity due to excess calories; E78.00 Pure hypercholesterolemia, unspecified; G45.8 Other transient cerebral ischemic attacks and related syndromes; I87.2 Venous insufficiency (chronic) (peripheral); I73.9 Peripheral vascular disease, unspecified; I48.0 Paroxysmal atrial fibrillation; Z86.73 Personal history of transient ischemic attack (TIA), and cerebral infarction without residual deficits; Z87.891 Personal history of nicotine dependence; Z68.32 Body mass index [BMI] 32.0-32.9, adult ==

== ENCOUNTER → 2019-11-08 | Outpatient (CLI) | payer OTHER | LOC: SJCVC 10:35 | PROVIDERS: ATTEND Internal Medicine Cardiovascular Disease | DX: I25.10 Atherosclerotic heart disease of native coronary artery without angina pectoris (principal); R94.31 Abnormal electrocardiogram [ECG] [EKG]; I49.5 Sick sinus syndrome; I73.9 Peripheral vascular disease, unspecified; I48.0 Paroxysmal atrial fibrillation; E78.00 Pure hypercholesterolemia, unspecified; I10 Essential (primary) hypertension; I87.2 Venous insufficiency (chronic) (peripheral); I65.23 Occlusion and stenosis of bilateral carotid arteries; Z95.0 Presence of cardiac pacemaker; Z95.1 Presence of aortocoronary bypass graft; Z79.899 Other long term (current) drug therapy; Z87.891 Personal history of nicotine dependence ==

== ENCOUNTER → 2020-02-21 | Outpatient (CLI) | payer OTHER | LOC: SJCVCIMAG 08:19 | PROVIDERS: ATTEND Internal Medicine Cardiovascular Disease | DX: I70.201 Unspecified atherosclerosis of native arteries of extremities, right leg (principal); I49.3 Ventricular premature depolarization; I25.10 Atherosclerotic heart disease of native coronary artery without angina pectoris; E78.00 Pure hypercholesterolemia, unspecified; Z95.828 Presence of other vascular implants and grafts; Z79.899 Other long term (current) drug therapy; Z87.891 Personal history of nicotine dependence ==

== ENCOUNTER → 2020-11-10 | Outpatient (CLI) | payer OTHER | LOC: SJCVC 10:50 | PROVIDERS: ATTEND Internal Medicine Cardiovascular Disease | DX: I25.10 Atherosclerotic heart disease of native coronary artery without angina pectoris (principal); I49.5 Sick sinus syndrome; E78.00 Pure hypercholesterolemia, unspecified; I73.9 Peripheral vascular disease, unspecified; I48.0 Paroxysmal atrial fibrillation; I10 Essential (primary) hypertension; I87.2 Venous insufficiency (chronic) (peripheral); I65.23 Occlusion and stenosis of bilateral carotid arteries; Z95.0 Presence of cardiac pacemaker; Z86.73 Personal history of transient ischemic attack (TIA), and cerebral infarction without residual deficits; Z79.899 Other long term (current) drug therapy; Z87.891 Personal history of nicotine dependence; Z88.1 Allergy status to other antibiotic agents ==

== ENCOUNTER 2020-11-21 16:23 | Emergency (ER) | payer OTHER ==
[~2020-11-21] VITALS: Ht 165.1 cm; Wt 68.0 kg
[2020-11-21 16:23] VITALS: BP 163/81
[2020-11-21 17:16] LABS: ABSOLUTE NEUTROPHILS 4.1 thou/uL (1.4-8.2); BASOPHILS 0.8 % (0.0-2.0); EOSINOPHILS 2.3 % (0.0-3.0); HEMATOCRIT 33.4 % (37.0-47.0); HEMOGLOBIN 11.1 gm/dL (12.0-15.0); LYMPHOCYTES 23.7 % (24.0-44.0); MCH 33.1 pg (26.0-34.0); MCHC 33.2 g/dL (28.0-37.0); MCV 99.6 fL (80.0-100.0); MONOCYTES 10.6 % (1.0-8.0); PLATELET COUNT 278 thou/uL (150-400); POLYS 62.6 % (36.0-66.0); RBC 3.36 mil/uL (4.20-5.00); RDW 15.9 % (10.5-14.5); WBC 6.5 thou/uL (4.0-11.0)
[2020-11-21 17:31] LABS: ANION GAP 8 mmol/L (7-16); BUN 15 mg/dL (7-18); CHLORIDE 111 mmol/L (98-107); CO2 24 mmol/L (21-32); CREATININE 1.3 mg/dL (0.6-1.0); GLUCOSE 92 mg/dL (74-106); POTASSIUM 4.4 mmol/L (3.5-5.1); SODIUM 143 mmol/L (136-145)
[2020-11-21 17:41] LABS: SGOT 35 U/L (15-37); SGPT 55 U/L (14-59); TOTAL BILIRUBIN 0.4 mg/dL (0.2-1.0); TOTAL PROTEIN 6.3 g/dL (6.4-8.2); TROPONIN-I <0.06 ng/mL (<0.06)
== END 2020-11-21 17:48 | disposition home or self-care (01) ==
LOC: ER 16:23
PROVIDERS: Emergency Medicine
DX: I87.8 Other specified disorders of veins (principal); K21.9 Gastro-esophageal reflux disease without esophagitis; I50.9 Heart failure, unspecified; E78.5 Hyperlipidemia, unspecified; N18.30 Chronic kidney disease, stage 3 unspecified; Z79.899 Other long term (current) drug therapy; Z88.1 Allergy status to other antibiotic agents; Z88.6 Allergy status to analgesic agent; Z87.891 Personal history of nicotine dependence

== ENCOUNTER 2021-01-08 09:42 | Inpatient (IN) | payer OTHER ==
[~2021-01-08] VITALS: Ht 160 cm; Wt 81.9 kg
--- NOTE | ~2021-01-08 | EMS ---
[address] [address] EMS Patient Care Report Name: DAVID SHINE I Room #: 454-P ADM IN M.R.#: [id number] Admission: 01/08/21 Attend Phys: Fritz Smith MD Discharge: Date of : 43 Report #: [id number] THIS REPORT FOR: //name// Report Transmitted: 01/12/2021 11:24 EMS Care Summary [facility] Incident [id number] @ 01/08/2021 08:43 Incident Location [address] [place] [address] [place] [address] Patient DAVID SHINE Female, 75 Years 1945 Patient Address [address] [place] [address] [place] [address] Patient History Hypertension (HTN),Pacemaker/AICD,Hyperlipidemia,Cardiac - Stent,Myocardial Infarction (AR), Patient Allergies Sulfa, Patient Medications Metoprolol, Amiodarone, Rosuvastatin, Chief Complaint multi injury with pain Disposition Transported No Lights/[place] Dispatch Reason Falls Transported To [facility] Narrative Dispatched for a fall down the stairs. The patient is found in her bed. She is alert and oriented x3 with a GCS of 15. She slipped and fell down about 9 stairs, landing on her butt and hitting her head on the stairs, then falling [address] [address] EMS Patient Care Report Name: DAVID SHINE I Room #: 454-P [facility] IN [facility]#: [id number] Admission: 01/08/21 Attend Phys: Fritz Smith MD Discharge: Date of : 43 Report #: [id number] down the stairs. This happened yesterday at 1030hrs. She denies losing consciousnes. She is complaining of pain from the neck down including her arms. Vitals were taken. A c collar was applied. An iv was started and 50 mcqs of fentanyl was given IV route. A scoop stretcher was used to take her down the stairs and onto the cot, then to the ambulance. While en route her blood pressure was too low to give more fentanyl as her pain was still a 10/10. Her last BP allowed me to give the other 50 mcqs of fentanyl iv route prior to arrival at destination. The patient remained in pain throughout the transport. There are no other incidents to report. Patient care transferred over to ER staff. Initial Vitals @09:24P: 122,R: 16,BP: 109/58,Pain: 10/10,GCS: 15,SpO2: 97,Revised Trauma: 12, @09:21P: 98,R: 14,BP: 155/92,Pain: 10/10,GCS: 15,SpO2: 98,Revised Trauma: 12, @09:11P: 96,R: 14,BP: 96/64,Pain: 10/10,GCS: 15,Glucose: 102,CO: 0,SpO2: 96,Revised Trauma: 12, @09:30P: 86,R: 16,BP: 146/81,Pain: 10/10,GCS: 15,SpO2: 98,Revised Trauma: 12, Assessments @08:58MENTAL:No Abnormalities,SKIN:No Abnormalities,HEENT:Head/Face: No Abnormalities,Eyes: No Abnormalities,Neck/Airway: No Abnormalities,LUNG SOUNDS:General: No Abnormalities,Left Upper: No Abnormalities,Right Upper: No Abnormalities,Left Lower: No Abnormalities,Right Lower: No Abnormalities,ABDOMEN:General: No Abnormalities,Left Upper: No Abnormalities,Right Upper: No Abnormalities,Left Lower: No Abnormalities,Right Lower: No Abnormalities,PELVIS//GI:No Abnormalities,EXTREMITIES:Left Arm: No Abnormalities,Right Arm: No Abnormalities,Left Leg: No Abnormalities,Right Leg: No Abnormalities,PULSE:NEURO:No Abnormalities,@09:33MENTAL:No Abnormalities,SKIN:No Abnormalities,HEENT:Head/Face: No Abnormalities,Eyes: No Abnormalities,Neck/Airway: No Abnormalities,LUNG SOUNDS:General: No Abnormalities,Left Upper: No Abnormalities,Right Upper: No Abnormalities,Left Lower: No Abnormalities,Right Lower: No Abnormalities,ABDOMEN:General: No Abnormalities,Left Upper: No Abnormalities,Right Upper: No Abnormalities,Left Lower: No Abnormalities,Right Lower: No Abnormalities,PELVIS//GI:No Abnormalities,EXTREMITIES:Left Arm: No Abnormalities,Right Arm: No Abnormalities,Left Leg: No Abnormalities,Right Leg: No Abnormalities,PULSE:NEURO:No Abnormalities, Impression Injury of Lower Back Procedures @09:04Fentanyl - 50 Micrograms (mcg) - Intravenous (IV)Response: Improved@08:58ALS AssessmentResponse: UnchangedSucceeded@09:01Normal Saline (.9% NaCl) 10cc (20 ga) Site: Antecubital-LeftResponse: UnchangedSucceeded@09:00Spinal Motion RestrictionResponse: [facility] [address] [place] [address] EMS Patient Care Report Name: DAVID SHINE I Room #: 454-P ADM IN [facility]#: [id number] Admission: 01/08/21 Attend Phys: Fritz Smith MD Discharge: Date of : 43 Report #: [id number] UnchangedSucceeded@09:33Fentanyl - 50 Micrograms (mcg) - Intravenous (IV)Response: Unchanged Timeline 08:41,Call Received 08:41,Psap Call 08:43,Dispatched 08:47,En Route 08:54,On Scene 08:56,At Patient 08:58,ALS Assessment,Response: UnchangedSucceeded, 09:00,Spinal Motion Restriction,Response: UnchangedSucceeded, 09:01,Normal Saline (.9% NaCl) 10cc 20 ga Site: Antecubital-Left,Response: UnchangedSucceeded, 09:04,Fentanyl - 50 Micrograms (mcg) - Intravenous (IV),Response: Improved 09:08,Depart Scene 09:11,BP: 96/64 M,PULSE: 96,RR: 14 R,SPO2: 96 Ox,ETCO2: ,B,PAIN: 10,GCS: 15, 09:21,BP: 155/92 M,PULSE: 98,RR: 14 R,SPO2: 98 Ox,ETCO2: ,BG: ,PAIN: 10,GCS: 15, 09:24,BP: 109/58 M,PULSE: 122,RR: 16 R,SPO2: 97 Ox,ETCO2: ,BG: ,PAIN: 10,GCS: 15, 09:30,BP: 146/81 M,PULSE: 86,RR: 16 R,SPO2: 98 Ox,ETCO2: ,BG: ,PAIN: 10,GCS: 15, 09:33,Fentanyl - 50 Micrograms (mcg) - Intravenous (IV),Response: Unchanged 09:37,At Destination 10:03,Call Closed Disclaimer v1.1 Copyright 2020 [employer] This EMS Care Summary contains data elements from the applicable legal record (which may be displayed differently). It is designed to provide pertinent information for the following purposes: continuity of care, clinical quality, and state data reporting. The complete legal record is available to ED staff and administrators of the receiving hospital in [employer]'s Patient Tracker. All data is provided "as is."
[2021-01-08 09:42] VITALS: BP 112/86
[2021-01-08 10:10] LABS: BASOPHILS 0.4 % (0.0-2.0); EOSINOPHILS 0.1 % (0.0-3.0); HEMATOCRIT 32.2 % (37.0-47.0); HEMOGLOBIN 10.4 gm/dL (12.0-15.0); LYMPHOCYTES 6.4 % (24.0-44.0); MCH 29.7 pg (26.0-34.0); MCHC 32.4 g/dL (28.0-37.0); MCV 91.5 fL (80.0-100.0); PLATELET COUNT 319 thou/uL (150-400); POLYS 85.1 % (36.0-66.0); RBC 3.51 mil/uL (4.20-5.00); RDW 13.5 % (10.5-14.5); WBC 17.6 thou/uL (4.0-11.0)
[2021-01-08 10:20] LABS: CALCIUM 10.1 mg/dL (8.5-10.1); CREATININE 3.3 mg/dL (0.6-1.0); POTASSIUM 3.3 mmol/L (3.5-5.1)
[2021-01-08 10:31] LABS: ALBUMIN 2.2 g/dL (3.4-5.0); DIRECT BILIRUBIN 0.3 mg/dL (<0.1-0.2); TOTAL BILIRUBIN 0.4 mg/dL (0.2-1.0); TOTAL PROTEIN 6.5 g/dL (6.4-8.2)
[2021-01-08 11:11] LABS: URINE BILIRUBIN NEGATIVE (Negative); URINE BLOOD 3+ (Negative); URINE CLARITY CLOUDY; URINE COLOR YELLOW; URINE GLUCOSE-RANDOM* NEGATIVE (Negative); URINE KETONES NEGATIVE (Negative); URINE PROTEIN (DIPSTICK) 2+ (Negative); URINE UROBILINOGEN 0.2 E.U./dl (0.2-1.0)
[2021-01-08 11:12] LABS: URINE LEUKOCYTES-REFLEX 2+ (Negative); URINE NITRITE-REFLEX POSITIVE (Negative)
[2021-01-08 12:00] LABS: BACTERIA-REFLEX >30 Many /HPF (None Seen); CASTS None Seen /LPF (None Seen); SQUAMOUS 4-10 Moderate /LPF (0-3); URINE RBC >20 Many /HPF (NONE SEEN)
[2021-01-08 12:01] LABS: AMORPHOUS URATES Few /LPF (None Seen)
[2021-01-08 13:49] VITALS: BP 141/67
[2021-01-08 13:55] VITALS: BP 124/63
--- NOTE | 2021-01-08 14:21 | EKG ---
[address] [place] [address] ELECTROCARDIOGRAM REPORT Name: DAVID SHINE I Room #: 170-10 ADM IN .R.#: [id number] Admission: 01/08/21 Attend Phys: Fritz Smith MD Discharge: Date of : 43 Report #: [id number] [facility] Test Date: 2021-01-08 Test Time: 09:51:01 Pat Name: DAVID SHINE Department: Room: 170 Gender: F System Operation Superintendent: JORGE : 1945 Requested By: Vishal Greenfield Order Number: [id number] : Alek Espana Measurements Intervals [place] Rate: 62 P: -77 WI: 182 QRS: 15 QRSD: 100 T: 13 QT: 478 QTc: 486 Interpretive Statements Atrial-paced complexes Borderline prolonged QT interval Compared to ECG 08/18/2017 05:44:40 No significant changes Electronically Signed On 01-08-2021 14:20:49 CDT by Alek Espana [email or web address] <ELECTRONICALLY SIGNED> By: Alek Espana MD, [facility] 01/08/21 1420 0951 09 Alek Espana MD, FACPatrica /EPI
[2021-01-08] MEDS ORDERED: CRESTOR40 MG PO (15:08)
[2021-01-08] MEDS ORDERED: TOPROL XL25 MG PO (15:09)
[2021-01-08] MEDS ORDERED: TORSEMIDE10 MG PO (15:13)
[2021-01-08] MEDS ORDERED: IRON18 M1 PO (15:16)
--- NOTE | 2021-01-08 18:39 | NUR ---
ADMISSION NOTE PT PRESENTS TO THE FLOOR FROM ER AT 1445. PT SUSTAINED FALL AT HOME LAST NIGHT. PT IS HERE FOR STRENGTHENING AND PAIN MANAGEMENT. PT ALSO HAS UTI WITH YOLY. WBC 17.6, HGB 10.4, BUN 39, CREAT 3.3, AST 120, ALT 131. PT IS IN CONSIDERABLE AMOUNT OF PAIN. PHOTOENGRAVING SUPERVISOR AT BEDSIDE ASSESSING PATIENT.
[2021-01-08 19:46] VITALS: BP 116/60
[2021-01-09 05:53] LABS: ABSOLUTE NEUTROPHILS 15.7 thou/uL (1.4-8.2); BASOPHILS 0.2 % (0.0-2.0); EOSINOPHILS 0.2 % (0.0-3.0); HEMATOCRIT 31.1 % (37.0-47.0); HEMOGLOBIN 10.2 gm/dL (12.0-15.0); LYMPHOCYTES 4.6 % (24.0-44.0); MCH 30.1 pg (26.0-34.0); MCHC 32.7 g/dL (28.0-37.0); MONOCYTES 6.7 % (1.0-8.0); PLATELET COUNT 313 thou/uL (150-400); POLYS 88.3 % (36.0-66.0); RBC 3.38 mil/uL (4.20-5.00); RDW 13.9 % (10.5-14.5); WBC 17.8 thou/uL (4.0-11.0)
[2021-01-09 06:35] LABS: ALBUMIN 1.8 g/dL (3.4-5.0); CALCIUM 9.3 mg/dL (8.5-10.1); CREATININE 3.7 mg/dL (0.6-1.0); MAGNESIUM 2.6 mg/dL (1.8-2.4); POTASSIUM 3.7 mmol/L (3.5-5.1); TOTAL BILIRUBIN 0.3 mg/dL (0.2-1.0)
--- NOTE | 2021-01-09 07:20 | NUR ---
pain controlled this shift. patient incontient pericare and barrier cream applied as needed. patient turned q [address] hours[address] precaution in place. patient in bed asleep at this time breathing regular and unlaboured.
[2021-01-09 07:37] VITALS: BP 112/65
--- NOTE | 2021-01-09 14:06 | NUR ---
Pt admitted related to fall and uti. Cm reviewed chart. Cm called her spouse and left vm. Based on chart review pt's prior level of function: pt lives at home with in split level home. used fww. independent with ADLs and shares IADLs. has stairs to each level in the home and 3 [address]. [facility]. 5N was consulted this day. Cm following regarding dc planning. If pt not appropriat for for 5n will likely need skilled but would need facility input on where they want referrals sent and auth. Cm following regarding dc planning.
[2021-01-09 17:15] VITALS: BP 108/62
[2021-01-09 19:12] VITALS: BP 94/53
--- NOTE | 2021-01-10 02:49 | NUR ---
patient aox1 confused and forgetful. patient has been slepy this shift.patient has increased pain to the right side of the body. pain controlled this shift. fall precaution in place.patient in bed asleep at this time breathing regular and unlaboured.
[2021-01-10 03:10] VITALS: BP 145/56
[2021-01-10 05:11] LABS: BASOPHILS 0.1 % (0.0-2.0); EOSINOPHILS 0.1 % (0.0-3.0); HEMOGLOBIN 10.1 gm/dL (12.0-15.0); LYMPHOCYTES 3.5 % (24.0-44.0); MCH 30.5 pg (26.0-34.0); MCHC 32.6 g/dL (28.0-37.0); MCV 93.4 fL (80.0-100.0); MONOCYTES 4.4 % (1.0-8.0); PLATELET COUNT 370 thou/uL (150-400); POLYS 91.9 % (36.0-66.0); RBC 3.32 mil/uL (4.20-5.00); RDW 13.7 % (10.5-14.5); WBC 17.4 thou/uL (4.0-11.0)
[2021-01-10 05:36] LABS: ALBUMIN 1.8 g/dL (3.4-5.0); CREATININE 3.7 mg/dL (0.6-1.0); MAGNESIUM 2.7 mg/dL (1.8-2.4); POTASSIUM 3.4 mmol/L (3.5-5.1); TOTAL BILIRUBIN 0.3 mg/dL (0.2-1.0); TOTAL PROTEIN 6.3 g/dL (6.4-8.2)
[2021-01-10 07:20] VITALS: BP 130/54
--- NOTE | 2021-01-10 11:47 | NUR ---
Assumed pt care this am , vs stable. Pt complains of pain that is not resolved despite pain medication given. Pt would be asleep then when staff are in the room wound complain of pain. Pt is only alert to self. Poor oral intake is noted, difficulty in taking oral medications pt stated that it is still in her mouth though when checked pt had already swallowed. 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 Q2 turns tried when allowed would refuse at times. MD aware of the change in mental status.
[2021-01-10 15:47] VITALS: BP 132/52
[2021-01-10 20:24] VITALS: BP 125/89
--- NOTE | 2021-01-11 02:21 | NUR ---
PT CARE ASSUMED WITH PT IN BED .PT IS A/O TO SELF.PT REFUSING MEDICATION FOOD AND FLUID OFFERED.PT IS X2 ASSIST AND PT IS INCONTINENT AND HAS A PURWICK IN PLACE.PT IS Q2 REPOSITIONING.PT REFUSED MEDS CRUSHED IN APPLE SAUCE .IV ACCESS IN LT AC WITH SODIUM BICARBONATE AT 100CC/HR.FALL PRECAUTIONS IN PLACE.PT ON ROOM AIR.WILL CONTINUE TO MONITOR PER POC
[2021-01-11 04:57] LABS: EOSINOPHILS 0.1 % (0.0-3.0); HEMATOCRIT 29.5 % (37.0-47.0); HEMOGLOBIN 9.8 gm/dL (12.0-15.0); MCH 29.9 pg (26.0-34.0); MCHC 33.3 g/dL (28.0-37.0); MCV 89.8 fL (80.0-100.0); MONOCYTES 6.3 % (1.0-8.0); POLYS 89.6 % (36.0-66.0); RBC 3.28 mil/uL (4.20-5.00); RDW 13.6 % (10.5-14.5); WBC 16.8 thou/uL (4.0-11.0)
[2021-01-11 05:15] LABS: ALBUMIN 1.7 g/dL (3.4-5.0); CALCIUM 8.9 mg/dL (8.5-10.1); CREATININE 3.4 mg/dL (0.6-1.0); MAGNESIUM 2.7 mg/dL (1.8-2.4); PLATELET COUNT 463 thou/uL (150-400); TOTAL BILIRUBIN 0.3 mg/dL (0.2-1.0); TOTAL PROTEIN 6.4 g/dL (6.4-8.2)
[2021-01-11 05:17] LABS: POTASSIUM 2.9 mmol/L (3.5-5.1)
[2021-01-11 07:28] VITALS: BP 145/64
[2021-01-11 15:42] VITALS: BP 169/64
--- NOTE | 2021-01-11 19:15 | NUR ---
Assumed pt care this am, pt is lethargic and refused any oral intake. Would cough when trying to take small sip of water. MD informed of decline, placed on aspirations precuations. Urine is still dark boogie. POC followed, endorsed to the night nurse.
[2021-01-12] VITALS: BP 135/94
--- NOTE | 2021-01-12 02:05 | NUR ---
PT CARE ASSUMED WITH PT IN BED APPEAR TO BE SLEEPING AND ALSO YELLING WHEN AWAKE.PT IS A/O TO SELF.PT IS ON ASPIRATION PRECAUTION AND ORAL HYGIENE DONE NEEDED.PT REPOSTION Q2 .PT HAS A PURWICK IN PLACE.PT IS INCONTINENT .FALL PRECAUTIONS IN PLACE.WILL CONTINUE TO MONITOR PER POC
[2021-01-12 05:35] LABS: ABSOLUTE NEUTROPHILS 12.3 thou/uL (1.4-8.2); BASOPHILS 0.1 % (0.0-2.0); HEMATOCRIT 31.7 % (37.0-47.0); HEMOGLOBIN 10.4 gm/dL (12.0-15.0); MCH 29.6 pg (26.0-34.0); MCHC 32.7 g/dL (28.0-37.0); MCV 90.6 fL (80.0-100.0); MONOCYTES 6.8 % (1.0-8.0); PLATELET COUNT 476 thou/uL (150-400); POLYS 87.1 % (36.0-66.0); RBC 3.51 mil/uL (4.20-5.00); RDW 13.7 % (10.5-14.5); WBC 14.1 thou/uL (4.0-11.0)
[2021-01-12 06:03] LABS: ALBUMIN 1.8 g/dL (3.4-5.0); CALCIUM 9.8 mg/dL (8.5-10.1); CREATININE 2.6 mg/dL (0.6-1.0); MAGNESIUM 2.6 mg/dL (1.8-2.4); TOTAL BILIRUBIN 0.6 mg/dL (0.2-1.0); TOTAL PROTEIN 6.6 g/dL (6.4-8.2)
[2021-01-12 06:06] LABS: POTASSIUM 2.8 mmol/L (3.5-5.1)
--- NOTE | 2021-01-12 16:28 | NUR ---
CM MET WITH PT AND SPOUSE AT BEDSIDE THIS DAY. 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 HE INDICATED THAT HE HAD TO ASSIST HER WITH SIT 2 STAND FOR TRANSFERS. CM PROVIDED [facility] SNF LIST FOR REVIEW SHOULD PT IMPROVE TO WHERE THAT WOULD BE APPROPRIATE. CM FOLLOWING REGARDING DC PLANNING.
[2021-01-12 20:12] VITALS: BP 186/88
[2021-01-13 01:07] VITALS: BP 171/86
[2021-01-13 04:14] VITALS: BP 181/98
[2021-01-13 05:27] LABS: ABSOLUTE NEUTROPHILS 12.3 thou/uL (1.4-8.2); BASOPHILS 0.1 % (0.0-2.0); EOSINOPHILS 0.1 % (0.0-3.0); HEMATOCRIT 30.4 % (37.0-47.0); HEMOGLOBIN 10.2 gm/dL (12.0-15.0); LYMPHOCYTES 7.4 % (24.0-44.0); MCH 29.7 pg (26.0-34.0); MCHC 33.6 g/dL (28.0-37.0); MCV 88.3 fL (80.0-100.0); PLATELET COUNT 432 thou/uL (150-400); POLYS 84.4 % (36.0-66.0); RBC 3.44 mil/uL (4.20-5.00); RDW 13.6 % (10.5-14.5); WBC 14.6 thou/uL (4.0-11.0)
[2021-01-13 05:59] LABS: % SATURATION 38 % (20-39); IRON 52 ug/dL (50-170); TIBC 138 ug/dL (250-450)
[2021-01-13 06:15] LABS: ALBUMIN 1.7 g/dL (3.4-5.0); CALCIUM 9.8 mg/dL (8.5-10.1); MAGNESIUM 2.3 mg/dL (1.8-2.4); TOTAL BILIRUBIN 0.6 mg/dL (0.2-1.0); TOTAL PROTEIN 6.3 g/dL (6.4-8.2)
[2021-01-13 06:30] LABS: POTASSIUM 2.6 mmol/L (3.5-5.1)
[2021-01-13 08:00] VITALS: BP 146/91
[2021-01-13 16:07] LABS: HAV IgM AB (ANTI-HAV IgM) Negative (Negative); HEPATITIS B SURFACE AG Negative (Negative); HEPATITIS C VIRUS AB <0.1 (0.0-0.9)
--- NOTE | 2021-01-13 16:56 | NUR ---
PT SEEN BY THIS AM AND TO REMAIN NPO. CM HAD PROVIDED PT'S SPOUSE WITH SNF LIST FOR REVIEW. CM FOLLOWING REGARDING DC PLANNING.
[2021-01-13 19:19] VITALS: BP 182/108
--- NOTE | 2021-01-13 19:32 | NUR ---
Assumed pt care this am, pt is a more alert but would still mumble words that cannot be understood. INcontinent of urine, connected to ext fc draining boogie urine. Currently NPO as per speech recommnedations. Oral care don through out the shift. at the bed side and spoke to the MD. POC followed. Endorsed to the night nurse.
[2021-01-13 21:09] VITALS: BP 141/91
[2021-01-14] VITALS (12 sets, daily range): BP systolic 132–177; BP diastolic 77–110
--- NOTE | 2021-01-14 06:09 | NUR ---
ASSUMED CARE OF PT AROUND 1900HRS. PT IS ALERT, FOLLOWS SIMPLE DIRECTIONS, BUT IS UNABLE TO VOICE CONCERNS. NEEDS MUST BE ASSUMED. PT WAS PLACED NPO DUE TO ASPIRATION RISK. PT HAD ELEVATED HR AND BP UPON INITIAL VITAL SIGN CHECK. BURLAPPER NOTIFIED; TELE ORDERED. HYDRALAZINE AND LOPRESSOR GIVEN WITH MINIMAL EFFECT ON HR AND BP. DOBBHOFF INSERSION ATTEMPTED X5 FOR PO MEDS; DOBBHOFF COILS BEFORE ESOPHAGEAL SPHINCTER PER KUB. DOBBHOFF REMOVED. IV AMIODARONE AND DIGOXIN ORDERED AND GIVEN WITH NO EFFECT. CARDIO CONSULED. CARDIZEM BOLUS/GTTS ORDERED AND GIVEN. PT TO BE TRANSFERRED TO TRANSFERRED TO CCU [facility].
[2021-01-14 08:40] LABS: ABSOLUTE NEUTROPHILS 14.2 thou/uL (1.4-8.2); BASOPHILS 0.3 % (0.0-2.0); EOSINOPHILS 0.8 % (0.0-3.0); HEMATOCRIT 31.8 % (37.0-47.0); HEMOGLOBIN 10.4 gm/dL (12.0-15.0); MCH 29.4 pg (26.0-34.0); MCHC 32.8 g/dL (28.0-37.0); MCV 89.6 fL (80.0-100.0); MONOCYTES 6.5 % (1.0-8.0); PLATELET COUNT 371 thou/uL (150-400); POLYS 86.4 % (36.0-66.0); RBC 3.55 mil/uL (4.20-5.00); RDW 14.1 % (10.5-14.5); WBC 16.4 thou/uL (4.0-11.0)
[2021-01-14 09:06] LABS: ALBUMIN 1.8 g/dL (3.4-5.0); CALCIUM 10.1 mg/dL (8.5-10.1); CREATININE 1.9 mg/dL (0.6-1.0); MAGNESIUM 2.1 mg/dL (1.8-2.4); TOTAL BILIRUBIN 0.6 mg/dL (0.2-1.0); TOTAL PROTEIN 6.1 g/dL (6.4-8.2)
[2021-01-14 09:10] LABS: POTASSIUM 2.8 mmol/L (3.5-5.1)
--- NOTE | 2021-01-14 09:39 | NUR ---
PT WAS TRANSFERED TO 2N CCU THIS AM ROOM 202. DOESN'T LOOK LIKE STAFF NOTIFIED PT'S SPOUSE HE CAME TO 4W THIS AM. CM NOTIIFIED HIM OF TRANSFER TO CCU 202. HE INDICATED THAT THEY WANTED REFERRAL SENT TO [facility] IF APPROPRIATE UPON DC.
--- NOTE | 2021-01-14 11:11 | NUR ---
Family interested in referral to [facility]. Faxed referral for review.
--- NOTE | 2021-01-14 11:29 | 2DMMODE ---
[facility] [place] [place] [address] 2 D/M-MODE ECHOCARDIOGRAM Name: DAVID SHINE I Room #: 202-P ADM IN M.R.#: [id number] Admission: 01/08/21 Attend Phys: Fritz Smith MD Discharge: Date of : 41 Report #: [id number] THIS REPORT FOR: cc: Nakia Ruano MD, Melanie MD Lammoglia, Francisco J. MD ~ APPROVED REPORT Study performed: 01/14/2021 10:43:03 EXAM: Comprehensive 2D, Doppler, and color-flow Echocardiogram Patient Location: Bedside Room #: 202 Status: routine BSA: 1.71 HR: 121 bpm BP: 164/108 mmHg Rhythm: Tachycardia Other Information Study Quality: Adequate/patient laying on right side Indications Atrial Fibrillation Hx: AL, CABG, PAF, pacemaker. 2D Dimensions RVDd: 28.90 mm IVSd: 12.97 (7-11mm) LVOT Diam: 20.27 (18-24mm) LVDd: 42.72 mm PWd: 12.90 (7-11mm) LVDs: 33.90 (25-40mm) Left Atrium: 39.43 (27-40mm) Aortic Root: 26.26 mm Volumes Left Atrial Volume (Systole) Single Plane 4CH: 81.70 mL Single Plane 2CH: 62.28 mL LA ESV Index: 46.00 mL/m2 Aortic Valve AoV Peak Steven.: 1.25 m/s AO Peak Gr.: 6.25 mmHg LVOT Max P.25 mmHg [facility] [address] [place] [address] 2 D/M-MODE ECHOCARDIOGRAM Name: DAVID SHINE I Room #: 202-P ADM IN M.R.#: [id number] Admission: 01/08/21 Attend Phys: Fritz Smith MD Discharge: Date of : 43 Report #: [id number] LVOT Max V: 1.15 m/s RENEE Vmax: 2.96 cm2 Pulmonary Valve PV Peak Steven.: 1.04 m/s PV Peak Gr.: 4.29 mmHg Tricuspid Valve TR Peak Steven.: 2.54 m/s TR Peak Gr.: 26.00 mmHg Left Ventricle The left ventricle is normal size. Regional wall motion abnormalities are noted. Mild concentric left ventricular hypertrophy. Left ventricular systolic function is normal. LVEF is 55-60%. This study is not technically sufficient to allow evaluation of the LV diastolic function. Right Ventricle The right ventricle is normal size. The right ventricular systolic function is normal. Pacemaker lead is present in the right ventricle. Atria Left atrium is moderately dilated. The right atrium size is normal. Aortic Valve The aortic valve is normal in structure. Trace aortic regurgitation. There is no aortic valvular stenosis. Mitral Valve Mitral valve leaflets are mildly thickened. Moderate mitral regurgitation. No evidence of mitral valve stenosis. Tricuspid Valve The tricuspid valve is normal in structure. Mild tricuspid regurgitation. Estimated PAP is 26mmHg plus the RAP. Pulmonic Valve Pulmonic valve is not well visualized. Great Vessels The aortic root is normal in size. Ascending aorta is not well visualized. IVC is not well visualized. Pericardium There is no pericardial effusion. [facility] [address] [place] [address] 2 D/M-MODE ECHOCARDIOGRAM Name: DAVID SHINE I Room #: 202-P [facility] IN ..#: [id number] Admission: 01/08/21 Attend Phys: Fritz Smith MD Discharge: Date of : 43 Report #: [id number] <Conclusion> The left ventricle is normal size. Mild concentric left ventricular hypertrophy. Regional wall motion abnormalities are noted which may be secondary to RV apical pacing LVEF is 55-60%. The right ventricle is normal size. Pacemaker lead is present in the right ventricle. Left atrium is moderately dilated. The aortic valve is normal in structure. Trace aortic regurgitation. Mitral valve leaflets are mildly thickened. Moderate mitral regurgitation. The tricuspid valve is normal in structure. Mild tricuspid regurgitation. Estimated PAP is 26mmHg plus the RAP. Pulmonic valve is not well visualized. The aortic root is normal in size. There is no pericardial effusion. <ELECTRONICALLY SIGNED> By: Jim Ya MD 01/14/21 [id number] [id number] Jim Ya MD /INF
[2021-01-15] VITALS (7 sets, daily range): BP systolic 130–159; BP diastolic 77–98
--- NOTE | 2021-01-15 05:33 | NUR ---
DANAITNUES ON 2 LITERS N/C. DENIES PAIN. SHE IS COOPERAITVE AND CALM. NEEDS FREQUENT TURNS. NO CHANGE IS MENTAL STATUS, CONTINUES TO BE AWAKE BUT NOT ANSWERING ANY ORIENTATION QUESTIONS EXCEPT NAME
[2021-01-15 06:33] LABS: CALCIUM 9.8 mg/dL (8.5-10.1); CREATININE 1.6 mg/dL (0.6-1.0)
--- NOTE | 2021-01-15 08:17 | NUR ---
CARDIOLOGY PA DID AN EVALUATION ON PT AND NOTICED A RIGHT FACIAL DROOP. MATT NOTIFIED. GOING TO CALL BACK AFTER FULL NEURO ASSESSMENT. NEURO ASSESSMENT NOTED RIGHT FACIAL DROOP, RIGHT ARM DRIFT, AND NO RESISTANCE TO GRAVITY IN LOWER EXTREMITIES.
--- NOTE | 2021-01-15 09:33 | NUR ---
WOUND CONSULT; THE PATIENTS BUTTOCKS WAS ASSESSED AND THERE IS LINEAR BRUSING CONSISTANT WITH A DEEP TISSUE INJURY. NO INJURIES WERE NOTED TO THE HEELS. RECOMMENDATIONS; -LOW AIR LOSS BED PUMP FRO PRESSURE REDISTRIBUTION. -Q2H TURNING AT A MINIMUM. -PRAFO BOOTS ON AT ALL TIMES (MAKE SURE SCD TUBING IS NOT TOUCH THE SKIN/HEELS. -BARRIER CREAM TO BILATERAL BUTTOCKS,SACRUM,COCCYX ETC. DISCUSSED WITH RN
--- NOTE | 2021-01-15 13:48 | NUR ---
Pt having CT head and CT pelvis today. DC timeframe is uncertain. [facility] op OP SNF rec'd referral and can accept ins;however pt will have copay of $225 a day for days 1-46 and no copay for days 47 to 100 with prior auth required. They are checking to see if pt's will cover the copay. Bed availability is pending dc timeframe. PT/OT was able to work with the pt today. Therapy notes faxed to [facility]
[2021-01-15 14:23] LABS: ABSOLUTE NEUTROPHILS 16.5 thou/uL (1.4-8.2); BASOPHILS 0.1 % (0.0-2.0); EOSINOPHILS 0.5 % (0.0-3.0); HEMATOCRIT 32.2 % (37.0-47.0); HEMOGLOBIN 10.5 gm/dL (12.0-15.0); LYMPHOCYTES 4.2 % (24.0-44.0); MCH 29.6 pg (26.0-34.0); MCHC 32.7 g/dL (28.0-37.0); MCV 90.5 fL (80.0-100.0); MONOCYTES 5.1 % (1.0-8.0); POLYS 90.1 % (36.0-66.0); RBC 3.56 mil/uL (4.20-5.00); RDW 14.2 % (10.5-14.5); WBC 18.3 thou/uL (4.0-11.0)
[2021-01-15 14:30] LABS: PLATELET COUNT 288 thou/uL (150-400)
[2021-01-15 14:37] LABS: CALCIUM 9.8 mg/dL (8.5-10.1); CREATININE 1.6 mg/dL (0.6-1.0); MAGNESIUM 1.8 mg/dL (1.8-2.4); POTASSIUM 3.8 mmol/L (3.5-5.1)
[2021-01-15 15:04] LABS: FOLIC ACID 19.8 ng/mL (8.6-58.9)
--- NOTE | 2021-01-15 18:33 | NUR ---
A #4F MIDLINE WAS PLACED IN THE RIGHT BRACHIAL. THE LINE WAS TRIMMED TO 15CM SECURED AND RELEASED FOR USE
--- NOTE | 2021-01-15 19:27 | NUR ---
PT SHOWING SIGNS OF STROKE THIS MORNING, NEURO, CARO, AND CARDIOLOGY AWARE. ALL TESTS NEGATIVES. SEE CHART. MATT SPOKE WITH FAMILY. PT NOT CURRENTLY MEETING GOALS.
[2021-01-16 04:45] VITALS: BP 152/76
[2021-01-16 05:55] LABS: BASOPHILS 0.2 % (0.0-2.0); HEMOGLOBIN 9.9 gm/dL (12.0-15.0)
[2021-01-16 05:57] LABS: ABSOLUTE NEUTROPHILS 13.6 thou/uL (1.4-8.2); HEMATOCRIT 30.8 % (37.0-47.0); MCH 29.7 pg (26.0-34.0); MCHC 32.3 g/dL (28.0-37.0); MCV 92.2 fL (80.0-100.0); MONOCYTES 5.1 % (1.0-8.0); PLATELET COUNT 286 thou/uL (150-400); POLYS 85.7 % (36.0-66.0); RBC 3.34 mil/uL (4.20-5.00); RDW 14.8 % (10.5-14.5); WBC 15.8 thou/uL (4.0-11.0)
[2021-01-16 06:17] LABS: ALBUMIN 1.7 g/dL (3.4-5.0); CREATININE 1.5 mg/dL (0.6-1.0); PHOSPHORUS 2.6 mg/dL (2.5-4.9); POTASSIUM 3.8 mmol/L (3.5-5.1); TOTAL BILIRUBIN 0.5 mg/dL (0.2-1.0)
[2021-01-16 07:30] VITALS: BP 154/61
[2021-01-16 11:20] VITALS: BP 139/68
--- NOTE | 2021-01-16 13:50 | NUR ---
No weekend dc anticipated per the care team. Possible will be ready by Tuesday. [facility] updated and they have accepted the pt. They are submitting ins auth request for admission to SNF Tuesday. She will have 100% coverage between both ins plans. Message left on spouse's cell phone.
--- NOTE | 2021-01-16 14:47 | NUR ---
TOOK OVER CARE FOR PATIENT AT 0700. PATIENT RESTING IN BED AT THIS TIME. PATIENT WEARING 2 L O2 VIA NASAL CANNULA; DENIES SOA AT THIS TIME OR CHEST PAIN. CARDIOLOGY WOULD LIKE TO CONTINUE DILTIAZEM DRIP AT THIS TIME. PHYSICAL AND OCCUPATIONAL THERAPY WORKED WITH PATIENT TODAY AND SAT ON SIDE OF BED. PROVIDER WANTED TO TRIAL ORAL FEEDING AGAIN WITH SPEECH THERAPY BUT PER SPEECH THERAPY PATIENT IS NOT READY FOR ORAL INTAKE AT THIS TIME. NO PAIN APPARENT. PATIENT SPEECH DIFFICULT TO UNDERSTAND BUT FAMILY PRESENT AT ROOM. DENIES ANY CONCERNS AT THIS TIME.
[2021-01-16 15:20] VITALS: BP 128/62
[2021-01-16 19:14] VITALS: BP 140/57
[2021-01-16 23:35] LABS: URINE BILIRUBIN NEGATIVE (Negative); URINE BLOOD 3+ (Negative); URINE CLARITY CLEAR; URINE COLOR YELLOW; URINE GLUCOSE-RANDOM* NEGATIVE (Negative); URINE KETONES NEGATIVE (Negative); URINE LEUKOCYTES-REFLEX TRACE (Negative); URINE NITRITE-REFLEX NEGATIVE (Negative); URINE PROTEIN (DIPSTICK) 1+ (Negative); URINE SPECIFIC GRAVITY 1.015 (1.005-1.035); URINE UROBILINOGEN 0.2 E.U./dl (0.2-1.0)
[2021-01-16 23:44] LABS: BACTERIA-REFLEX None Seen /HPF (None Seen); CASTS None Seen /LPF (None Seen); CRYSTALS None Seen /LPF (None Seen); MUCUS None Seen strn/LPF (None Seen); SQUAMOUS None Seen /LPF (0-3); URINE RBC 1-2 Rare /HPF (NONE SEEN); URINE WBC-REFLEX 0-5 Rare /HPF (0-5)
--- NOTE | 2021-01-17 01:42 | NUR ---
ASSUMED PT CARE AT 1900, PT IS ORIENTED TO SELF, AFIB ON TELE, CONTINUES ON CARDIZEM GTT PER ORDERS; CARDIZEM GTT TITRATED TO 5ML/HR. HR IN THE IN THE 70S, VSS, PT BLADDERF SCANNED WITH 1900 URINE RESIDUAL, PT STRAIGHT CATH WITH 1000 URINE OUT AFTER PT BEING INCONTINENT; URINE SAMPLE SEND TO LAB, CLIMEX AND D5 INFUSING PER ORDERS, NO NEEDS AT THIS TIME, KADEN CONTINUE TO MONITOR AND FOLLOW POC
[2021-01-17 03:07] VITALS: BP 135/55
[2021-01-17 03:08] VITALS: BP 135/55
[2021-01-17 09:22] VITALS: BP 150/65
[2021-01-17 12:00] VITALS: BP 149/68
[2021-01-17 12:12] LABS: CREATININE 1.2 mg/dL (0.6-1.0); MAGNESIUM 1.9 mg/dL (1.8-2.4); PHOSPHORUS 2.8 mg/dL (2.6-4.7)
--- NOTE | 2021-01-17 17:15 | NUR ---
PATIENT RESTING IN BED WEARING 2 L OXYGEN VIA NASAL CANNULA. SCANNED PATIENT BLADDER THIS MORNING AT 1030; BLADDER SCAN RESULT 1683. INFORMED DR. CARO OF BLADDER SCAN RESULT; ORDERED TO INSERT HEATON CATHETER. HEATON CATHETER ATTEMPT WAS UNSUCCESSFUL BY 2 NURSES; STRAIGHT CATHETER ATTEMPT SUCCESSFUL AND EMPTIED 1600 ML OF DARK YELLOW URINE. DR. CARO ADJUSTED SEVERAL ORDERS WITH PATIENT FLUIDS. FALL PRECAUTIONS IN PLACE AND CALL LIGHT WITHIN REACH. SPOUSE PRESENT AT BEDSIDE. DENIES ANY ADDITIONAL NEEDS.
[2021-01-17 19:25] VITALS: BP 152/77
--- NOTE | 2021-01-18 02:55 | NUR ---
PT IS ALERT TO SELF OTHERWISE FORGETFULL. LUNGS ARE CLEAR TO DIMINISHED. CONJESTED COUGH NO SPUTUM NOTED. ABDOMEN IS SOFT. PT PALE WITH BRUISES NOTED. ON O2 AT 2 LITERS NASAL CANULA. SCDS AND ON BOOTS. BARIER CREAM TO COCCYX. PT HAS URINARY RETENTION NOTED. SO STRAIGHT CATH WITH GOOD OUTPUT NOTED. CALL LIGHT WITHIN REACH IF NEEDS ASSISTANCE.
[2021-01-18 04:32] VITALS: BP 148/81
[2021-01-18 05:00] LABS: ABSOLUTE NEUTROPHILS 14.6 thou/uL (1.4-8.2); BASOPHILS 0.2 % (0.0-2.0); EOSINOPHILS 0.6 % (0.0-3.0); HEMATOCRIT 26.6 % (37.0-47.0); HEMOGLOBIN 8.6 gm/dL (12.0-15.0); LYMPHOCYTES 6.1 % (24.0-44.0); MCH 29.7 pg (26.0-34.0); MCHC 32.4 g/dL (28.0-37.0); MCV 91.7 fL (80.0-100.0); MONOCYTES 4.9 % (1.0-8.0); PLATELET COUNT 267 thou/uL (150-400); POLYS 88.2 % (36.0-66.0); RDW 14.5 % (10.5-14.5); WBC 16.5 thou/uL (4.0-11.0)
[2021-01-18 05:23] LABS: ALBUMIN 1.5 g/dL (3.4-5.0); CALCIUM 9.6 mg/dL (8.5-10.1); CREATININE 1.2 mg/dL (0.6-1.0); POTASSIUM 3.4 mmol/L (3.5-5.1); TOTAL BILIRUBIN 0.3 mg/dL (0.2-1.0); TOTAL PROTEIN 5.7 g/dL (6.4-8.2)
[2021-01-18 05:24] LABS: PHOSPHORUS 2.9 mg/dL (2.6-4.7)
[2021-01-18 07:21] VITALS: BP 151/84
[2021-01-18 12:56] VITALS: BP 136/91
[2021-01-18 15:12] VITALS: BP 150/57
--- NOTE | 2021-01-18 19:09 | NUR ---
A RIGHT #5F TRIPLE LUMEN PICC WAS PLACED VIA OTHER WIRE USING [facility]. THE LINE WAS TRIMMED TO 38CM AND ADVANCED TO 1 CM EXTERNAL. THE LINE WAS CONFIRMED WITH JENSEN 3CG AT THE CAVOATRIAL JUNCTION AND RELEASED FOR USE
[2021-01-18 19:27] VITALS: BP 164/68
--- NOTE | 2021-01-18 19:51 | NUR ---
LEFT FOREARM IV WAS PULLED OUT ACCIDENTALLY BY THE PT. DUE TO LIMITED IV ACCESS AND MULTIPLE DRIPS PHYSICIAN WAS CONTACTED AND ORDERS RECEIVED FOR A PICC LINE. PT REMAINS ON CARDIZM AT 10 THROUGHOUT SHIFT, PT REMAINS IN A-FIB RATE CONTROLLED IN THE 'S. HEATON WAS INSERTED TODAY.
[2021-01-18 21:05] LABS: HEMATOCRIT 22.8 % (37.0-47.0); HEMOGLOBIN 7.6 gm/dL (12.0-15.0)
[2021-01-18 22:41] LABS: ALBUMIN 1.4 g/dL (3.4-5.0); CALCIUM 9.2 mg/dL (8.5-10.1); CREATININE 1.1 mg/dL (0.6-1.0); PHOSPHORUS 2.7 mg/dL (2.6-4.7); POTASSIUM 3.1 mmol/L (3.5-5.1); TOTAL BILIRUBIN 0.3 mg/dL (0.2-1.0); TOTAL PROTEIN 5.2 g/dL (6.4-8.2)
[2021-01-19] VITALS (13 sets, daily range): BP systolic 129–155; BP diastolic 56–93
--- NOTE | 2021-01-19 07:22 | NUR ---
ASSUMED PT CARE AT 1900, PT IS MORE AWAKE AND CONVERSANT, ORIENTED TO SELF AND PLACE, AFIB ON TELE, PACED RHYTH AT TIMES, NEW ORDERS NOTED, CONSENT FOR BLOOD OBTAINED FROM GREGORIA, I UNIT OF PRBCS INITIATED AT 0440, PT MONITORED THE FIRST 30 MINS, NO REACTION NOTED, PT STAYED AWAKE ALL NIGHT, PT C/O ABDOMINAL PAIN AT 0535, TEST ENGINEERING TECHNICIAN NOTIFIED, VITAL SIGNS REMAINED STABLE, PT GIVEN BENADRYL AND ORDERED LASIX, PT IS SLEEPIN AT THIS TIME, DENIES CONCERNS, VSS REMAINED STABLE, PASSED ON REPORT
[2021-01-19 09:12] LABS: BASOPHILS 0.3 % (0.0-2.0); EOSINOPHILS 1.5 % (0.0-3.0); HEMATOCRIT 25.9 % (37.0-47.0); HEMOGLOBIN 8.4 gm/dL (12.0-15.0); LYMPHOCYTES 6.8 % (24.0-44.0); MCH 29.1 pg (26.0-34.0); MCHC 32.4 g/dL (28.0-37.0); MONOCYTES 6.8 % (1.0-8.0); PLATELET COUNT 272 thou/uL (150-400); POLYS 84.6 % (36.0-66.0); RBC 2.88 mil/uL (4.20-5.00); RDW 14.5 % (10.5-14.5); WBC 14.2 thou/uL (4.0-11.0)
[2021-01-19 09:21] LABS: ALBUMIN 1.3 g/dL (3.4-5.0); CREATININE 1.1 mg/dL (0.6-1.0); MAGNESIUM 2.1 mg/dL (1.8-2.4); PHOSPHORUS 2.8 mg/dL (2.5-4.9); POTASSIUM 3.4 mmol/L (3.5-5.1); TOTAL BILIRUBIN 0.4 mg/dL (0.2-1.0); TOTAL PROTEIN 5.2 g/dL (6.4-8.2)
--- NOTE | 2021-01-19 17:57 | NUR ---
PT RECEIVED 1 UNIT OF BLOOD THIS AM (TOLERATED WELL). PT APPEARS TO BE MORE ALERT TODAY AND IS ANSWERING SOME QUESTIONS APPROPRIATELY STILL HAS SOME CONFUSION. CARDIZM WAS TURNED OFF THIS AM DUE TO LOW HEART RATE. PT HEART RATE HAS BEEN GOING BETWEEN 45 AND 90 THROUGHOUT THE SHIFT AND OCCASIONALLY PACED. SPOUSE AND DAUGHTER HAS TAKEN TURNS THROUGHOUT THE SHIFT AND SPENT TIME WITH PT.
--- NOTE | 2021-01-19 18:01 | NUR ---
Patient not stable for discharge at this time. Updated [facility] with faxed updates.
[2021-01-20 03:55] VITALS: BP 168/64
--- NOTE | 2021-01-20 04:24 | NUR ---
ASSUMED PT CARE AT 1900, PT IS AWAKE, MORE CONVERSANT, ORIENTED TO SELF AND PLACE WITH CONFUSION, PT AFIB ON TELE SOMETIMES A PACED, HR IN THE 60S, HELD METOPROLOL, PAIN WHEN REPOSITIONED, PT TITRATED DOWN TO RA, O2SATS STABLE, STARTED ON TPN, REMAINS ON ABX, HEATON IN PLACE DRAINING WELL, NO BM THIS SHIFT, REMAINS NPO WITH MOUTH SWABS PROVIDED, PROGRESSING SLOWLY TOWARDS DISCHARGE
[2021-01-20 05:20] LABS: HEMATOCRIT 24.6 % (37.0-47.0); MCH 29.5 pg (26.0-34.0); MCHC 32.4 g/dL (28.0-37.0); RBC 2.7 mil/uL (4.20-5.00); RDW 15.2 % (10.5-14.5); WBC 12.6 thou/uL (4.0-11.0)
[2021-01-20 05:41] LABS: ALBUMIN 1.4 g/dL (3.4-5.0); DIRECT BILIRUBIN 0.1 mg/dL (<0.1-0.2); TOTAL BILIRUBIN 0.4 mg/dL (0.2-1.0); TOTAL PROTEIN 4.6 g/dL (6.4-8.2)
[2021-01-20 05:49] LABS: CREATININE 1.1 mg/dL (0.6-1.0); MAGNESIUM 2.2 mg/dL (1.8-2.4); PHOSPHORUS 2.4 mg/dL (2.5-4.9)
[2021-01-20 07:22] VITALS: BP 171/78
[2021-01-20 12:02] VITALS: BP 167/75
--- NOTE | 2021-01-20 13:26 | NUR ---
PT IS AWAKE, ORIENTED TO SELF AND PLACE; ABLE TO STATE SHE IS IN THE HOSPITAL. VS BP ELEVATED, AFEBRILE, A PACED ON MONITOR. PT CONTINUES ON TPN AT 50ML/HR, GOAL RATE 70ML/HR. WOUND CARE PROVIDED BILAT HEELS AND SACRAL AREA. REPLACED K+ PER PROTOCOL. DR HAMPTON CONSULTED; SPEECH THERAPY CONSULTED. POC IS TO CONTINUE THE PT ON ABX. ARCHITECTURE ANALYST TO REASSESS DYSPHAGIA AND POSSIBILITY TO GO TO HONEY THICK AND PUREED DIET. PT IS EXTREMELY PAIN AT TOUCH AND MOVEMENT. FALL PRECAUTIONS IN PLACE. WILL CONTINUE TO MONITOR SBP.
--- NOTE | 2021-01-20 15:20 | NUR ---
spoke with patient and alerted keeping [facility] updated with plan for transisiton to [facility] once stable. Patient shook her head "no." Sister at bedside and sp with casemgt in [place]. She reports patient was angry to be at [facility], She reports she rec very good care and rehab but she did not want to be there. She reports [facility] if the best place for her for rehab. Sp with spouse who reports they had a small incident that occured at [facility] which they resolved. he also feels best place for her for rehab to home. Does not feel she would be pleased with any place for skilled rehab. Gi to see regarding peg tube. At this time no peg tube and cont to eat and monitor. Faxed clinical updates to [facility]. Spouse hopeful phys encourage patient to transition to [facility] for skilled rehab. Casemgt cont to follow.
[2021-01-20 16:20] VITALS: BP 162/82
[2021-01-20 19:48] VITALS: BP 176/89
[2021-01-21] VITALS (7 sets, daily range): BP systolic 149–181; BP diastolic 67–82
[2021-01-21 05:18] LABS: MAGNESIUM 2.3 mg/dL (1.8-2.4); PHOSPHORUS 1.9 mg/dL (2.5-4.9); POTASSIUM 3.3 mmol/L (3.5-5.1)
--- NOTE | 2021-01-21 07:41 | NUR ---
assumed pt care at 1900, alert & oriented to self and place with confusion, assessments as charted, apaced on tele, generalized pain noted with repositioning, bank accountant notified, orders received, remains on tpn at 60 ml/hr, picc line to the r.upper arm with no redness, no distress noted, passed on report
--- NOTE | 2021-01-21 19:03 | NUR ---
Patient is A/OX3 this AM but more confused as the day progresses. SBP >160, afebrile, apaced Sinus rhythmm.c/o pain that is generalized but BLE is worse. unable to verbalize pain but has facial grimacing and frowning with movement.Prn Fentanyl given with relief. Diet upgraded to puree with honey thick liquids. Poor appetitie during day. Continues on TPN at 60ml/hr. Continue with ABX therapy and POC. Fall precautions in place. call light with in reach.
[2021-01-22 04:23] VITALS: BP 173/84
--- NOTE | 2021-01-22 05:06 | NUR ---
RECEIEVED PATIENT AT 1900H.ON NASAL CANNULA AT 1.5LITERS SATURATING WELL.WITH PICC LINE INTACT,WITH ONGOING TPN AND D5.WITH HEATON CATHETER INTACT.ALL NEEDS ATTENDED.FALL PREVENTION MEASURES MAINTAINED.VERIFIED WITH CLAIMS ATTORNEY IF WE NEED TO CONTINUE D5 AND TPN AT THE SAME TIME, TO CONTINUE TILL THEY DECIDE IN THE MORNING.
[2021-01-22 06:10] LABS: HEMATOCRIT 24.4 % (37.0-47.0); HEMOGLOBIN 8.1 gm/dL (12.0-15.0); MCH 30.1 pg (26.0-34.0); MCHC 33.1 g/dL (28.0-37.0); MCV 90.8 fL (80.0-100.0); RBC 2.69 mil/uL (4.20-5.00); RDW 15.5 % (10.5-14.5); WBC 11.2 thou/uL (4.0-11.0)
[2021-01-22 06:55] LABS: CALCIUM 8.8 mg/dL (8.5-10.1); MAGNESIUM 2.4 mg/dL (1.8-2.4); PHOSPHORUS 2.5 mg/dL (2.5-4.9); POTASSIUM 3.9 mmol/L (3.5-5.1)
[2021-01-22 07:06] LABS: ALBUMIN 1.5 g/dL (3.4-5.0); DIRECT BILIRUBIN 0.1 mg/dL (<0.1-0.2); TOTAL BILIRUBIN 0.3 mg/dL (0.2-1.0); TOTAL PROTEIN 4.8 g/dL (6.4-8.2)
[2021-01-22 08:22] VITALS: BP 137/57
--- NOTE | 2021-01-22 10:06 | HC ---
[facility] [place] [address] CONSULTATION Name: DAVID SHINE I Room #: 202-P ADM IN M.R.#: [id number] Admission: 01/08/21 Attend Phys: Fritz Smith MD Discharge: Date of : 43 Report #: [id number] THIS REPORT FOR: cc: Nakia Ruano MD, Melanie MD Stephens, Thad A. MD ~ DATE OF SERVICE: 01/15/2021 WOUND CARE CONSULTATION PERSONAL PHYSICIAN: None on staff. CHIEF COMPLAINT: Bilateral heel ulcers. HISTORY OF PRESENT ILLNESS: This is a 75-year-old white female who was admitted after a fall with persistent confusion. The patient was noted to have deep tissue injuries to both heels and gluteal region. We have been asked to care for these while she is here in the hospital. The patient's is at the bedside ____. The patient herself is unable to give any history. PAST MEDICAL HISTORY: Significant for atrial fibrillation, coronary artery disease, hyperlipidemia, anemia, gastroesophageal reflux disease, recent history of falls. CURRENT MEDICATIONS: Multiple, I reviewed the patient's medication list. DRUG ALLERGIES: INCLUDE TRAMADOL, CIPROFLOXACIN. SOCIAL HISTORY: The patient resides with her . REVIEW OF SYSTEMS: Unobtainable because of the patient's confusion at this time. PHYSICAL EXAMINATION: VITAL SIGNS: Stable. The patient is afebrile. GENERAL: This is an awake, but not alert white female who is in no acute distress. HEENT: Normocephalic, atraumatic. Mucous membranes are somewhat dry. Pupils are round. Sclerae white. NECK: Without JVD. LUNGS: Clear. HEART: Regular. ABDOMEN: Soft, nontender. SKIN: Evaluation of gluteal region reveals a deep tissue injury to the right gluteal region without any open ulcerations. EXTREMITIES: The patient moves all extremities without difficulty. Bilateral [facility] [address] [place] [address] CONSULTATION Name: DAVID SHINE I Room #: 202-P ADM IN [facility].#: [id number] Admission: 01/08/21 Attend Phys: Fritz Smith MD Discharge: Date of : 43 Report #: [id number] heels have deep tissue injuries with intact ecchymotic regions, but no actual open ulcerations. NEUROLOGIC: Cranial nerves II through XII grossly intact. Motor and sensory grossly intact. IMPRESSION: 1. Deep tissue injury to the right gluteal region. 2. Deep tissue injury, bilateral heels. 3. Anemia of chronic disease. 4. History of atrial fibrillation. 5. History of generalized debility with a recent fall. 6. Protein calorie malnutrition -- severe with albumin 1.8. PLAN: At this time, we will start barrier cream to the ____ and leave open to air. We will do this twice daily and p.r.n. On the bilateral heel deep tissue injury, we will use Betadine and heel protection at all times. We will make sure we continue all other current medications. We will utilize physical and occupational therapy as the patient is able for strengthening. We will continue all other current medications. <ELECTRONICALLY SIGNED> By: Scooter Marie MD 01/22/21 1006 [id number] Scooter Marie MD /nt
[2021-01-22 11:01] VITALS: BP 129/61
[2021-01-22 15:27] VITALS: BP 142/61
--- NOTE | 2021-01-22 15:44 | NUR ---
PATIENT RESTING IN BED. PATIENT MUMBLES WORDS BUT WORDS ARE INCOHERENT AND NOT ORIENTATED. PT WEARING 2 L OXYGEN VIA NASAL CANNULA. PT CONTINUES TO HAVE PROBLEMS WITH SWALLOWING; HIGH RISK FOR ASPIRATION. SPOKE TO SPEECH THERAPY TODAY AND THEY AGREE SHE CURRENTLY IS UNABLE TO SWALLOW AND WOULD BE UNSAFE TO TRY ORAL FOOD AT THIS TIME. PATIENT CONTINUES TO HAVE SEVERE PAIN WHEN MOVING. VITAL SIGNS STABLE AT THIS TIME. SPOKE WITH HOSPITALIST REGARDING PATIENTS INABILITY TO SWALLOW.
--- NOTE | 2021-01-22 15:45 | NUR ---
Spoke in LOS and discussed dc plan. Patient is not eating well. Discussion of possible peg tube. Patient remains on TPN. She is on wait list with [facility].
[2021-01-22 20:33] VITALS: BP 145/56
[2021-01-23 03:32] VITALS: BP 166/91
[2021-01-23 06:32] LABS: HEMATOCRIT 25.4 % (37.0-47.0); HEMOGLOBIN 8.3 gm/dL (12.0-15.0); MCH 29.8 pg (26.0-34.0); MCHC 32.6 g/dL (28.0-37.0); MCV 91.2 fL (80.0-100.0); RBC 2.78 mil/uL (4.20-5.00); RDW 15.4 % (10.5-14.5); WBC 10.3 thou/uL (4.0-11.0)
--- NOTE | 2021-01-23 06:33 | NUR ---
RECEIVED PATIENT AT 1900H.ON NASAL CANNULA AT 1.5LPM, SATURATING WELL.WITH PICC LINE INTACT, WITH ONGOING TPN AND D5.WITH HEATON CATHETER INTACT.ALL NEEDS ATTENDED.FOR CONTINOUS MONITORING
[2021-01-23 06:46] LABS: CALCIUM 8.7 mg/dL (8.5-10.1); CREATININE 0.9 mg/dL (0.6-1.0); POTASSIUM 3.9 mmol/L (3.5-5.1)
[2021-01-23 07:20] VITALS: BP 165/77
[2021-01-23 11:20] VITALS: BP 168/77
--- NOTE | 2021-01-23 14:02 | NUR ---
TOOK OVER CARE FOR THIS PATIENT AT 0700. PATIENT RESTING COMFORTABLY IN BED AT THIS TIME. COMPLAINT OF PAIN AT THIS TIME; ADMINISTERED PRN PAIN MEDICATION. SPEECH THERAPY WORKED WITH PATIENT TO HELP WITH SWALLOWING.
--- NOTE | 2021-01-23 14:42 | NUR ---
Case discussed with the care team. PEG placement discussed with pt/spouse and they have declined. Pt with very poor po intake and not a good candidate for SNF given her continued weakness and poor nutritional status. The attending spoke with her spouse about hospice and he is thinking about this. Pt is still on TPN. [facility] SNF referral on hold at this time. Spouse will be back in later today and hospice info left for his review.
--- NOTE | 2021-01-23 16:35 | NUR ---
ADMITTED TO 4S. A/O X 1 SELF. 1 1/2 L VIA NASAL CANNULA. HEATON IN PLACE. LAST BM 01/22/21. RIGHT TRIPLE LUMEN PICC- PPN INFUSING @ 70 MLS/HR AND D5 INFUSING @ 80 MLS/HR. HYDRALIZINE GIVEN FOR BP 169/88. PUREE DIET AND HONEY THICK LIQUIDS. FEEDER. AT BEDSIDE. HEATON IN PLACE. BILATERAL HEEL BOOTS TO PREVENT BREAKDOWN. ACCU CHECK Q 6HRS. RIGHT SIDE WEAKNESS FROM PAST TIA.
[2021-01-23 19:21] VITALS: BP 131/63
[2021-01-24 03:47] VITALS: BP 152/76
--- NOTE | 2021-01-24 04:06 | NUR ---
UPON SHIFT ASSESSMENT, PT DROWSY, AROUSABLE TO VERBAL AND TACTILE STIMULATION, OTHERWISE ALERT AND AWAKE, ORIENTED TO PERSON STATING ' INI REGARDS TO , REFUSES TO RESPOND TO OTHER ORIENTATION PROMPTS. PT DENIES PAIN AND SOB WHILE ON 1.5L O2 VIA NC. CONGESTED, NONPRODUCTIVE COUGH NOTED. PT WITH MINIMUM PO INTAKE THROUGHOUT SHIFT, REMAINS ON CONTINUOUS IVF. PT WITHOUT NAUSEA OR EMESIS. PT RESTING IN BED THROUGHOUT SHIFT, FREQUENT REPOSITIONING ENCOURAGED, PT REFUSING REPOSITIONING ASSISTANCE DUE TO COMFORT PREFERENCES, LOW AIR LOSS MATTRESS IN PLACE. UNABLE TO PERFORM WOUND CARE DUE TO PT REQUEST TO MAINTAIN POSITION AND NOTABLE INCREASED PAIN WITH TACTILE STIMULATION TO BLE. +2 PITTING EDEMA NOTED TO RLE AND +3 PITTING EDEMA NOTED TO LLE. SENSATION INTACT, CAPILLARY REFILL LESS THAN 3SEC, PERIPHERAL PULSES PALPABLE IN ALL EXTREMITIES. PT ENCOURAGED TO NOTIFY STAFF FOR ALL NEEDS, CALL LIGHT WITHIN REACH, BED ALARM ON, BED LOCKED IN LOWEST POSITION, FREQUENT MONITORING WILL CONTINUE.
[2021-01-24 05:03] VITALS: BP 101/58
--- NOTE | 2021-01-24 05:38 | HC ---
[facility] [place] [address] [address] CONSULTATION Name: DAVID SHINE I Room #: 434-P ADM IN M.R.#: [id number] Admission: 01/08/21 Attend Phys: Fritz Smith MD Discharge: Date of : 41 Report #: [id number] THIS REPORT FOR: cc: Nakia Ruano MD, Melanie MD Khosla,Sabino Tolentino MD ~ DATE OF SERVICE: 01/14/2021 HISTORY OF PRESENT ILLNESS: A 75-year-old female patient who was evaluated by me for confusion. I talked to the patient first and she talks very softly. She also talks very little. I was not able to get a good history. I talked to the patient's nurse and he provided some history and I reviewed the records including the cardiology consult and H and P. This patient is being seen by multiple consultants. Subsequently, I was able to reach the patient's and he provided most of the history. The history I get is that this patient had a TIA about 8 years ago. She had a speech difficulty for 2 days from which she recovered. That is the history from the patient's , but it may have been a stroke that time because the patient has a chronic lacunar infarct in the left posterior frontal lobe. In any event, she recovered from that. About 2 years ago, she fell and she had injury to the right hip as well as the right shoulder. Since then, she has a significant problem with the right arm as well as the right leg. She is not able to raise her right arm because of the shoulder injury and has to help her, but she was able to talk before she came to the hospital. She has been admitted to the hospital with multiple problems. Those problems include urinary tract infection, hyponatremia, renal failure, and hepatic dysfunction. REVIEW OF SYSTEMS: Extensive in this patient. She has a pacemaker. Neither the nor the patient knows if the pacemaker is compatible with MRI. She has a history of paroxysmal atrial fibrillation and had multiple procedures done on the heart and presently, she is not on anticoagulation because of the fall. Records also indicate she had a carotid arterial disease, but I do not know when was the last carotid done in this patient. The last one in the record here is from 2006, but she may have had more carotid Doppler done in industrial accountant's office. She has both renal failure as well as hepatic dysfunction at the moment and her hepatic problem during this admission. She is being followed by multiple consultants. She has been here before, but has not been here since 2017. She has a pretty significant coronary artery disease. She had some confusion before, but the confusion is worse now. She is a pretty reluctant historian and you have to really push her to get the information out. This was a relevant 14-point review of system, but review of systems was also positive [facility] [address] [place] [address] CONSULTATION Name: DAVID SHINE I Room #: 434-P ADM IN M.R.#: [id number] Admission: 01/08/21 Attend Phys: Fritz Smith MD Discharge: Date of : 41 Report #: [id number] for multiple cardioversions, skin graft, oral surgery, EGD, colonoscopy, GERD, congestive heart failure, OH, and peripheral vascular disease. PAST MEDICAL HISTORY: Positive for coronary artery disease and what described as TIA, but was probably a stroke. FAMILY HISTORY: Unremarkable. SOCIAL HISTORY: She lives with her . He was the one who provided most of the history. She does not use alcohol or smoke now. PHYSICAL EXAMINATION: Her examination was limited. She talks very softly when I asked her what month it is. She mumbles something which I could not understand. She did not know what hospital she was in. Speech was affected. Cranial nerve examination II-XII was difficult to carry out. I do not see any facial weakness, but I cannot tell about the visual scott. She has pretty restricted movement in the right upper and right lower extremities. In fact, all 4 extremities are weak, but it is more so on the right side and significantly. I tried to do the position sense, reflexes tone and she did not cooperate. She did not understand the instructions to do the cerebellar sign. I could not look at the patient's fundus. She has no meningeal sign. She is well-built and looks like her hearing and vision is adequate. There is no thyroid mass. There is no carotid bruit. Blood pressure is 166/95, respirations 20, pulse is 123, temperature is 98.5. She has atrial fibrillation and rapid rate, and that is being addressed by Cardiology. She does not appear to be in any respiratory difficulty and does not appear to have any marked edema. LABORATORY DATA: WBC is 16.4. There are multiple abnormalities in the blood including sodium. She did have a CT scan of the head, which showed old changes, but no new changes. IMPRESSION: Aphasia and right hemiplegia in the patient, who has a prior stroke and now has a pretty significant metabolic encephalopathy. They can have focal signs in the same distribution, but at the same time, this patient can also have another stroke because she is in atrial fibrillation and because of the falls is not anticoagulated. She is on a DVT prophylaxis dose of Lovenox. Situation is even more difficult in this patient because she is weak on the right side because of the injury to the shoulder and the hip because of the falls 2 years ago. RECOMMENDATIONS: 1. Mainly continue to manage the metabolic problems. 2. We will try to see when the carotid Doppler was done. Otherwise, probably should repeat that. [facility] [address] [place] [address] CONSULTATION Name: DAVID SHINE Jose Room #: 434-P ADM IN M.R.#: [id number] Admission: 01/08/21 Attend Phys: Fritz Smith MD Discharge: Date of : 41 Report #: [id number] 3. Atrial fibrillation. An anticoagulation is being addressed by Cardiology and will defer to them. 4. I will get an EEG done to look for encephalopathy. I am not sure what else can be done in this patient in these circumstances. I have asked the nurses to find out if her pacemaker is compatible with MRI or not and if it is compatible, we can try to set up the MRI, but that still takes a few days to do that. I spent more than 50 minutes of time taking care of this patient today and majority was spent counseling and coordinating. <ELECTRONICALLY SIGNED> By: Sabino Stock MD 01/24/21 [id number] Sabino Stock MD /nt
[2021-01-24 08:09] VITALS: BP 153/72
[2021-01-24 12:06] VITALS: BP 171/74
[2021-01-24 13:16] LABS: ALBUMIN 1.3 g/dL (3.4-5.0); CALCIUM 8.8 mg/dL (8.5-10.1); MAGNESIUM 2.4 mg/dL (1.8-2.4); PHOSPHORUS 3.3 mg/dL (2.6-4.7); POTASSIUM 4.1 mmol/L (3.5-5.1); TOTAL BILIRUBIN 0.3 mg/dL (0.2-1.0); TOTAL PROTEIN 5.4 g/dL (6.4-8.2)
[2021-01-24 15:44] VITALS: BP 173/81
--- NOTE | 2021-01-24 18:03 | NUR ---
PT ASSESSED AT START OF SHIFT. VERY WEAK, NOT WANTING TO BE REPOSITIONED BUT ALLOWED IT TO BE DONE. VERY PAINFUL DURING MOVEMENT. PAIN MEDS GIVEN W/ SOME RELIEF. SKIN HEALING ON BUTTOCKS. DR. MALDONADO IN TO SEE PT. ATE A LITTLE BETTER TODAY. KEEPING MORTON AT BEDSIDE. TELE SHOWING AFIB/FLUTTER RATE CONTROLLED. NO PACING NOTED.
[2021-01-24 20:25] VITALS: BP 157/73
[2021-01-25 04:09] VITALS: BP 165/69
--- NOTE | 2021-01-25 04:17 | NUR ---
ASSUMED PT CARE AT 1900.PT DENIED PAIN SO FAR.PT REPOSITIONED WHILE IN BED.BRUISING NOTED TO HER ARMS.BLE EDEMA NOTED.ZGUARD TO HER BUTTOCKS.PT CONT ON IV ABX/IVF AND TPN.PT STILL WITH POOR APPETITE.HEATON CATH TO DD WITH YELLOW URINE NOTED IN THE BAG.CALL LIGHT WITHIN REACH.
[2021-01-25 08:15] VITALS: BP 163/74
--- NOTE | 2021-01-25 11:31 | NUR ---
ASSUMED PT CARE AT 1100 FROM NIGHT NURSE. PT IS ALERT & ORIENTED X3 TO PERSON, SITUATION AND PLACE. PT HAS IV SITE ON KHURRAM PICC LINE TRIPLE LUMEN. PT IS ON TELE MONITOR. PT IS ACCUCHECK ACHS. PT HAS PRAFO BOOTS AND LOW AIR MATTRESS. PT HAS HEATON CATH IN PLACE. PT IS ON 1L NC O2. PT AT THE BEDSIDE. PT ON THE BED, BED ON THE LOWEST POSITION, SIDE RAILS UP, CALL LIGHT WITHIN REACH. WILL CONTINUE TO MONITOR PT. FOLLOW POC.
[2021-01-25 11:55] VITALS: BP 134/61
[2021-01-25 16:50] VITALS: BP 143/68
[2021-01-25 19:49] VITALS: BP 157/69
[2021-01-25 22:33] LABS: MAGNESIUM 2.3 mg/dL (1.8-2.4); PHOSPHORUS 3.4 mg/dL (2.5-4.9); POTASSIUM 4.2 mmol/L (3.5-5.1)
[2021-01-26 04:00] VITALS: BP 173/76
[2021-01-26 05:24] LABS: CALCIUM 9.1 mg/dL (8.5-10.1); POTASSIUM 4.1 mmol/L (3.5-5.1)
--- NOTE | 2021-01-26 06:25 | NUR ---
PT SLEPT THROUGH THE NIGHT REPORTS NO PAIN OR DISCOMFORT TOLARATED MEDICATIONS WELL, NO ADVERSE REACTION NOTED, WILL CONTINUE TO MONITOR.
[2021-01-26 07:30] VITALS: BP 167/73
[2021-01-26 09:00] LABS: HEMATOCRIT 25.6 % (37.0-47.0); HEMOGLOBIN 8.1 gm/dL (12.0-15.0); MCHC 31.6 g/dL (28.0-37.0); MCV 91.6 fL (80.0-100.0); RBC 2.79 mil/uL (4.20-5.00); RDW 15.8 % (10.5-14.5); WBC 8.5 thou/uL (4.0-11.0)
--- NOTE | 2021-01-26 09:45 | NUR ---
Assumed care of pt at 0700. Pt alert but forgetful. Q2h turn. Pt in pain when being turned. Feeder. On 1L O2. Thomas catheter in place. TPN and IVF infusing. Wound care. Family at bedside. Call light within reach. Fall precautions in place. Will continue to monitor.
[2021-01-26 13:43] VITALS: BP 152/71
--- NOTE | 2021-01-26 14:13 | NUR ---
SW reviewed chart and spoke with nursing and attending physician. Pt was transferred to from . Per attending physician, pt is stable for discharge to [facility] today. TPN to be discontinued today. SW updated [facility] liaison, who states they are able to accept pt today. Insurance auth is valid until 01/28. Stretcher van transportation scheduled for 1730 per facility's arrangements. SW met with pt and dtr at bedside to discuss discharge plan. Pt's dtr states that family was not aware of pt being discharged today. Pt's reports that the attending physician did not say that the pt was discharging today. Pt's to be at [facility] this afternoon to meet with attending physician around 1500 to discuss plan of care and discharge. REJI updated [facility] liaison and faxed discharge orders. Chart copy requested. Nursing provided with number to call report. REJI is following to assist as needed with discharge planning.
[2021-01-26 16:17] VITALS: BP 152/63
== END 2021-01-26 18:10 | DRG 871 ==
LOC: ER 09:42 → EROBS 13:38 → 4W 13:38 → 2N 13:38 → 4W 14:32 → 2N 01-14 07:30 → 4S 01-23 14:52
PROVIDERS: Hospitalist; Internal Medicine; Nurse Practitioner; Nurse Practitioner Adult Health; Student in an Organized Health Care Education/Training Program; ADMIT Internal Medicine; ATTEND Internal Medicine
PROC: 5A09357 Assistance with Respiratory Ventilation, Less than 24 Consecutive Hours, Continuous Positive Airway Pressure (ICD-10-PCS; principal; 2021-01-13)
PROC: 02HV33Z Insertion of Infusion Device into Superior Vena Cava, Percutaneous Approach (ICD-10-PCS; 2021-01-18)
PROC: 30233N1 Transfusion of Nonautologous Red Blood Cells into Peripheral Vein, Percutaneous Approach (ICD-10-PCS; 2021-01-19)
DX: A41.9 Sepsis, unspecified organism (principal); N17.0 Acute kidney failure with tubular necrosis; G92.8 Other toxic encephalopathy; E43 Unspecified severe protein-calorie malnutrition; J18.9 Pneumonia, unspecified organism; N39.0 Urinary tract infection, site not specified; R47.01 Aphasia; E87.2 Acidosis; B17.9 Acute viral hepatitis, unspecified; E87.0 Hyperosmolality and hypernatremia; D62 Acute posthemorrhagic anemia; I13.0 Hypertensive heart and chronic kidney disease with heart failure and stage 1 through stage 4 chronic kidney disease, or unspecified chronic kidney disease; I69.351 Hemiplegia and hemiparesis following cerebral infarction affecting right dominant side; S09.90XA Unspecified injury of head, initial encounter; I25.10 Atherosclerotic heart disease of native coronary artery without angina pectoris; I73.9 Peripheral vascular disease, unspecified; I50.9 Heart failure, unspecified; N18.30 Chronic kidney disease, stage 3 unspecified; E78.5 Hyperlipidemia, unspecified; K21.9 Gastro-esophageal reflux disease without esophagitis; S30.0XXA Contusion of lower back and pelvis, initial encounter; S90.31XA Contusion of right foot, initial encounter; S90.32XA Contusion of left foot, initial encounter; D63.8 Anemia in other chronic diseases classified elsewhere; R53.81 Other malaise; I48.0 Paroxysmal atrial fibrillation; M85.80 Other specified disorders of bone density and structure, unspecified site; M19.90 Unspecified osteoarthritis, unspecified site; B96.20 Unspecified Escherichia coli [E. coli] as the cause of diseases classified elsewhere; E87.6 Hypokalemia; I65.29 Occlusion and stenosis of unspecified carotid artery; I49.5 Sick sinus syndrome; I99.8 Other disorder of circulatory system; L89.310 Pressure ulcer of right buttock, unstageable; L89.620 Pressure ulcer of left heel, unstageable; R33.9 Retention of urine, unspecified; Z20.822 Contact with and (suspected) exposure to COVID-19; R13.10 Dysphagia, unspecified; Z95.1 Presence of aortocoronary bypass graft; Z95.0 Presence of cardiac pacemaker; Z79.82 Long term (current) use of aspirin; Z79.899 Other long term (current) drug therapy; Z95.5 Presence of coronary angioplasty implant and graft; I25.2 Old myocardial infarction; Z88.8 Allergy status to other drugs, medicaments and biological substances; Z87.891 Personal history of nicotine dependence; Z88.1 Allergy status to other antibiotic agents; Z68.32 Body mass index [BMI] 32.0-32.9, adult; W18.39XA Other fall on same level, initial encounter; Y93.89 Activity, other specified; Y92.098 Other place in other non-institutional residence as the place of occurrence of the external cause; Y99.8 Other external cause status; Z95.820 Peripheral vascular angioplasty status with implants and grafts
CPT/HCPCS: 10040; 10045; 10081; 10102; 27000